=== PATIENT | female | born 1940 | race Caucasian/White ===

== ENCOUNTER → 2019-11-23 14:34 | Outpatient (BNVA) | payer MEDICARE, OTHER, SELFPAY | PROVIDERS: Referring Provider Dermatology; Visit Provider Dermatology | DX: L57.0 Actinic keratosis (principal); L21.9 Seborrheic dermatitis, unspecified; L82.1 Other seborrheic keratosis; L90.0 Lichen sclerosus et atrophicus; Z12.83 Encounter for screening for malignant neoplasm of skin | CPT/HCPCS: 17000; 17003; 99203; 99204 ==

== ENCOUNTER → 2020-01-23 11:25 | Outpatient (BNVA) | payer MEDICARE, OTHER, SELFPAY | PROVIDERS: Referring Provider Nurse Practitioner Family; Visit Provider Nurse Practitioner Family | DX: R19.7 Diarrhea, unspecified (principal); R19.8 Other specified symptoms and signs involving the digestive system and abdomen | CPT/HCPCS: 87205; 87425; 87493; 87506 ==

== ENCOUNTER → 2020-01-28 12:41 | Outpatient (BNVA) | payer MEDICARE, OTHER, SELFPAY | PROVIDERS: Visit Provider Emergency Medicine | DX: R19.7 Diarrhea, unspecified (principal); R10.9 Unspecified abdominal pain | CPT/HCPCS: 80053; 85025 ==

== ENCOUNTER 2020-02-03 11:31 | Outpatient (CLI) | payer MEDICARE, OTHER, SELFPAY ==
--- NOTE | 2020-02-03 11:45 | USCV_ITS ---
Valerie High Age: 79 Gender: F : 1940 Exam Date: 02/03/2020 12:26 Ordering Phys: Jm Geiger MD ([email or web address]) Technologist: Virginia Zaidi [place] [facility] [place]ication: HISTORY: varicose veins with swelling left ankle PROCEDURES: Bilateral duplex Venous Insufficiency study of the Deep and Superficial systems was carried out according to normal protocol with the patient in supine positon for deep system and dependent position for the superficial system. FINDINGS: negative for DVT and superficial thrombus. Reflux seen in left SFJ. No other areas of insufficiency noted Vessel diameters and reflux times noted above. CONCLUSIONS No evidence of DVT in the above-mentioned identifiable veins. Significant venous reflux of greater than 500 ms(5530) at the left saphenofemoral junction. No other significant refluxes were noted either in the superficial or deep vein segments bilaterally. The superficial veins were found to be relatively of small caliber bilaterally The venous dimensions and the depth from the surface are as mentioned above Dr Kristen Beatty MD [facility] (Electronically Signed) Final Date: 03 February 2020 19:57 S
== END 2020-02-03 11:32 | disposition home or self-care (01) ==
LOC: US 11:34
PROVIDERS: PCP Family Medicine; Visit Provider Internal Medicine Cardiovascular Disease
DX: I83.893 Varicose veins of bilateral lower extremities with other complications (principal); M79.89 Other specified soft tissue disorders
CPT/HCPCS: 93970

== ENCOUNTER → 2020-05-07 18:00 | Outpatient (BNVA) | payer MEDICARE, OTHER, SELFPAY | PROVIDERS: PCP Family Medicine; Visit Provider Family Medicine | DX: I10 Essential (primary) hypertension (principal); E11.9 Type 2 diabetes mellitus without complications; R19.7 Diarrhea, unspecified; I48.21 Permanent atrial fibrillation; M25.551 Pain in right hip; M25.552 Pain in left hip; Z86.73 Personal history of transient ischemic attack (TIA), and cerebral infarction without residual deficits | CPT/HCPCS: 80053; 80061; 83036 ==

== ENCOUNTER → 2020-10-30 11:12 | Outpatient (BNVA) | payer MEDICARE, OTHER, SELFPAY | PROVIDERS: PCP Family Medicine; Visit Provider Family Medicine | DX: K21.9 Gastro-esophageal reflux disease without esophagitis (principal); E78.00 Pure hypercholesterolemia, unspecified; I10 Essential (primary) hypertension; E11.9 Type 2 diabetes mellitus without complications; Z63.79 Other stressful life events affecting family and household; I48.21 Permanent atrial fibrillation; N18.2 Chronic kidney disease, stage 2 (mild) | CPT/HCPCS: 80053; 80061; 83036 ==

== ENCOUNTER → 2020-11-13 15:05 | Outpatient (BNVA) | payer MEDICARE, OTHER, SELFPAY | PROVIDERS: PCP Family Medicine; Visit Provider Nurse Practitioner Family | DX: J06.9 Acute upper respiratory infection, unspecified (principal); Z20.822 Contact with and (suspected) exposure to COVID-19 | CPT/HCPCS: 87635 ==

== ENCOUNTER 2020-11-27 11:10 | Emergency (ER) | payer MEDICARE, OTHER, SELFPAY ==
--- NOTE | 2020-11-27 11:22 | XRR_ITS ---
PROCEDURE INFORMATION: Exam: XR Chest Exam date and time: 11/27/2020 11:22 AM Age: 80 years old Clinical indication: Shortness of breath. TECHNIQUE: Imaging protocol: XR of the chest. Views: 1 view. COMPARISON: CR Ribs RIGHT w PA Chest [id number] 03/17/2018 3:06 PM FINDINGS: Lungs: No pneumonia or pulmonary edema. Biapical pleuroparenchymal scarring. Pleural spaces: No pleural effusion or pneumothorax. Heart/Mediastinum: The cardiac silhouette is not enlarged. The mediastinal contours are normal. Bones/joints: There are multilevel bridging osteophytes in the spine. XR/XR chest 1V portable [id number] IMPRESSION: No acute finding.
[2020-11-27 11:57] VITALS: BP 190/83; PULSE 73; RESP 16; TEMP 37.2; O2SAT 99; BMI 27.7
[2020-11-27 18:46] VITALS: BP 200/70; PULSE 84; RESP 16; O2SAT 98
--- NOTE | 2020-11-27 19:24 | ECG_ITS ---
[facility] ED Test Date: 2020-11-27 Pat Name: Valerie High Department: Room: Gender: Female Tribal Delegate: : 1940 Requested By: Montse Garcia Order Number: [id number] Ross MD: Natasha Johnson M.D. Measurements Intervals [place] Rate: 82 P: 26 CT: 142 QRS: 18 QRSD: 84 T: 11 QT: 362 QTc: 425 Interpretive Statements SINUS RHYTHM WITH FREQUENT VENTRICULAR PREMATURE COMPLEXES IN A BIGEMINAL PATTERN ABNORMAL RHYTHM ECG No previous ECG available for comparison Electronically Signed On 11-29-2020 7:41:39 CDT by Natasha Johnson M.D. [email or web address]/[id number]
--- NOTE | 2020-11-27 19:26 | ED_ITS ---
HPI - General Adult General: Chief complaint: COVID symptoms Stated complaint: N/D, altered taste Time Seen by Provider: 11/27/20 18:44 History of Present Illness: HPI narrative: Patient is a 80-year-old female with history of TIA, CKD, CAD, atrial fibrillation presented to the emergency room with complaints of generalized weakness malaise x2 weeks, decreased taste, and multiple episodes of loose stool/diarrhea. Patient tells me that over the last few weeks, she has been spiking intermittent fever. This morning, patient noticed she had a fever 100 agrees at home. Patient denies taking any medicine. Denies any melena or hematochezia, bur reports intermittent lower abdominal pain. Patient denies any chest pain shortness of breath, palpitation, and focal weakness. Has any vomiting but reports decreased p.o. intake due to sensation of nausea. No cough patient has had a Covid swab x1 -2 weeks ago. Onset:2 weeks ago Duration:2 weeks Location:home Severity:mild/moderate Review of Systems Narrative: Constitutional: +fever, no chills. +genealized weakness/malaise HEENT: No vision changes, +decrease taste CV: No chest pain, no palpitations PULM: no cough, no dyspnea. GI: +lower abdominal pain,, +N/-V/+D. : No dysuria MSKEL: No muscle pain SKIN: No new rashes, no lesions. NEURO: No headache, no focal weakness. HEME: No visible bruises PSYCH: Normal mood PFSH ED PFSH: Medical History A-fib CKD (chronic kidney disease) Diabetes mellitus GERD (gastroesophageal reflux disease) History of basal cell carcinoma (BCC) History of seizure History of stroke HTN (hypertension) Hx-TIA (transient ischemic attack) Hypercholesterolemia Lower extremity edema Premature ventricular contraction Surgical History S/P appendectomy S/P bladder repair S/P cataract surgery S/P cholecystectomy S/P hysterectomy Family History Other CAD (coronary artery disease) Social History Smoking and tobacco status: never smoked Alcohol intake: never Female Reproductive History: Spontaneous abortions: No Physical Exam Narrative: EXAM NARRATIVE: Head: Atraumatic Eyes: PERRL, conjunctiva without injection ENT: Mucous membrane moist NECK: Supple, ROM intact LUNGS: LCTAB, no crackles/rhonchi CV: RRR ABDOMEN: Soft, nontender in all quadrants, no rebound tenderness, no visible bulge, no focal tenderness palpitation in the suprapubic, CVA area EXTREMITY: Normal ROM SKIN: No rash or erythema NEURO: Awake and alert, no focal motor deficits PSYCH: Normal mood and affect Course Vital Signs: Vital signs: Vital Signs Temperature 98.9 F 11/27/20 11:57 Pulse Rate 89 11/27/20 22:32 Respiratory Rate 18 11/27/20 22:32 Blood Pressure 166/93 11/27/20 22:32 Pulse Oximetry 98 11/27/20 22:32 MDM - General Adult MDM Narrative: Medical decision making narrative: Patient is a 80-year-old female with a hx of TIA, CKD, CAD, atrial fibrillation scented to the emergency room with complaints of generalized weakness malaise x2 weeks, decreased taste, and multiple episodes of loose stool/diarrhea. Workup including EKG, troponin, basic blood work, urine. EKG NSR, bigeminy PVC, NV/QRS/QT within normal limit, no ST-T wave changes, prior EKG for comparison. Patient is Covid negative. Chest x-ray not show any signs of COVIDor other pneumonia. Laboratory evaluation are largely normal. Patient is noted to have a creatinine 1.4 which is close to baseline. Patient has no problem with urination. UA is negative for any UTI. EKG showed bigeminy have discussed findings with patient who reassures me she will follow up with her primary care provider for the EKG findings. Do not believe her EKG is the cause of her symptoms. Otherwise electrolytes slightly decreased including sodium. CMP within normal limit. I have offered patient admission for cardiac work-up however at this time, patient declines citing desire to go home. Discussed the risk of leaving the hospital today including , and hemodynamic labs and patient agrees with plan for outpatient follow-up with PCP. Verbalizes understanding of the alternatives includes close outpatient follow-up. Patient request for network account manager and new primary care provider. I have contacted her counseling case manager who will follow up with patient with these providers. Patient is aware of her EKG findings and has a copy of her EKG report. Over the emergency room, patient continued to sat greater than 95%. Patient needs hemodynamically stable without any focal complaints. Patient tolerated p.o. in the emergency room. No focal complaints abdominal pain tenderness on serial exam. Decision: Discharge. Patient is given strict return precaution for any w orsening pain, nausea/vomiting, focal weakness, chest pain shortness breath, new or concerning planes. Lab Data: Labs: Lab Results 11/27/20 11/27/20 11/27/20 Range/Units 19:00 19:00 19:00 WBC 10.7 H (4.0-10.0) 10^3/ uL RBC 4.54 (4.1-5.3) 10^6/u L Hgb 13.7 (11.5-15.3) g/dL Hct 42.0 (37.0-47.0) % MCV 92.5 (81-99) fL MCH 30.2 (28.0-34.0) pg MCHC 32.6 (30.0-36.0) g/dL RDW 11.7 L (12.1-15.1) % Plt Count 415 H (130-400) 10^3/c mm MPV 9.9 (7.4-10.4) fL Neut % (Auto) 57.1 % Lymph % (Auto) 33.0 % [place] % (Auto) 7.1 % Eos % (Auto) 1.4 % Baso % (Auto) 0.6 % Neut # (Auto) 6.09 (1.8-7.7) 10^3/u L Lymph # (Auto) 3.5 (0.8-4.8) 10^3/u L [place] # (Auto) 0.8 (0.2-0.9) 10^3/u L Eos # (Auto) 0.2 (0.0-0.8) 10^3/u L Baso # (Auto) 0.1 (0.0-0.1) 10^3/u L Nucleated RBC % (a uto) 0 % Nucleated RBCs # 0.0 /100WBC Sodium 132 L (136-145) mmol/L Potassium 4.5 (3.5-5.1) mmol/L Chloride 96 L (98-107) mmol/L Carbon Dioxide 23 (22-29) mmol/L Anion Gap 17.5 (5-19) BUN 16 (8-23) mg/dL Creatinine 1.4 H (0.5-0.9) mg/dL GFR Calculation Not Reportable Glucose 102 (65-115) mg/dL Calculated Osmolal ity 275 L (285-295) mOsm/k g Lactate 1.4 (0.5-2.2) mmol/L Calcium 10.1 (8.5-10.5) mg/dL Total Bilirubin 0.2 (0.15-1.2) mg/dL AST 17 (0-32) U/L ALT 16 (0-33) U/L Alkaline Phosphata se 106 H (35-105) IU/L Troponin T Gen 5 n g/L (0-10) ng/L Total Protein 8.1 (6.6-8.7) g/dL Albumin 4.2 (3.5-5.2) g/dL Globulin 3.9 (1.3-4.6) g/dL Lipase 16 (13-60) U/L Urine Color (Yellow) Urine Appearance (CLEAR) Urine pH (5-7) Ur Specific Gravit y (1.005-1.030) Urine Protein (Negative) Urine Glucose (UA) (Normal) Urine Ketones (Negative) Urine Blood (Negative) Urine Nitrate (Negative) Urine Bilirubin (Negative) Urine Urobilinogen (Negative) mg/dL Ur Leukocyte Jolanta ase (Negative) Urine RBC (0-2) /hpf Urine WBC (0-5) /hpf Ur Squamous Epith Cells (0-5) /hpf Amorphous Sediment Urine Bacteria (NONE) /hpf Urine Opiates Scre en (Negative) ng/mL Ur Barbiturates Sc reen (Negative) ng/mL Ur Phencyclidine S crn (Negative) ng/mL Ur Amphetamines Sc reen (Negative) ng/mL U Benzodiazepines Scrn (Negative) ng/mL Urine Cocaine Scre en (Negative) ng/mL U Marijuana (THC) Screen (Negative) ng/mL SARS-CoV-2 Ag (Rap id) (Negative) 11/27/20 11/27/20 11/27/20 Range/Units 19:00 19:30 20:35 WBC (4.0-10.0) 10^3/ uL RBC (4.1-5.3) 10^6/u L Hgb (11.5-15.3) g/dL Hct (37.0-47.0) % MCV (81-99) fL MCH (28.0-34.0) pg MCHC (30.0-36.0) g/dL RDW (12.1-15.1) % Plt Count (130-400) 10^3/c mm MPV (7.4-10.4) fL Neut % (Auto) % Lymph % (Auto) % [place] % (Auto) % Eos % (Auto) % Baso % (Auto) % Neut # (Auto) (1.8-7.7) 10^3/u L Lymph # (Auto) (0.8-4.8) 10^3/u L [place] # (Auto) (0.2-0.9) 10^3/u L Eos # (Auto) (0.0-0.8) 10^3/u L Baso # (Auto) (0.0-0.1) 10^3/u L Nucleated RBC % (a uto) % Nucleated RBCs # /100WBC Sodium (136-145) mmol/L Potassium (3.5-5.1) mmol/L Chloride (98-107) mmol/L Carbon Dioxide (22-29) mmol/L Anion Gap (5-19) BUN (8-23) mg/dL Creatinine (0.5-0.9) mg/dL GFR Calculation Glucose (65-115) mg/dL Calculated Osmolal ity (285-295) mOsm/k g Lactate (0.5-2.2) mmol/L Calcium (8.5-10.5) mg/dL Total Bilirubin (0.15-1.2) mg/dL AST (0-32) U/L ALT (0-33) U/L Alkaline Phosphata se (35-105) IU/L Troponin T Gen 5 n g/L 8 (0-10) ng/L Total Protein (6.6-8.7) g/dL Albumin (3.5-5.2) g/dL Globulin (1.3-4.6) g/dL Lipase (13-60) U/L Urine Color Yellow (Yellow) Urine Appearance Clear (CLEAR) Urine pH 7 (5-7) Ur Specific Gravit y 1.005 (1.005-1.030) Urine Protein Neg (Negative) Urine Glucose (UA) Norm (Normal) Urine Ketones Negative (Negative) Urine Blood Neg (Negative) Urine Nitrate Negative (Negative) Urine Bilirubin Neg (Negative) Urine Urobilinogen Neg (Negative) mg/dL Ur Leukocyte Jolanta ase Negative (Negative) Urine RBC 0-4 H (0-2) /hpf Urine WBC 0-4 H (0-5) /hpf Ur Squamous Epith Cells 5-10 H (0-5) /hpf Amorphous Sediment Not Reportable Urine Bacteria Trace (NONE) /hpf Urine Opiates Scre en (Negative) ng/mL Ur Barbiturates Sc reen (Negative) ng/mL Ur Phencyclidine S crn (Negative) ng/mL Ur Amphetamines Sc reen (Negative) ng/mL U Benzodiazepines Scrn (Negative) ng/mL Urine Cocaine Scre en (Negative) ng/mL U Marijuana (THC) Screen (Negative) ng/mL SARS-CoV-2 Ag (Rap id) Negative (Negative) 11/27/20 Range/Units 20:35 WBC (4.0-10.0) 10^3/ uL RBC (4.1-5.3) 10^6/u L Hgb (11.5-15.3) g/dL Hct (37.0-47.0) % MCV (81-99) fL MCH (28.0-34.0) pg MCHC (30.0-36.0) g/dL RDW (12.1-15.1) % Plt Count (130-400) 10^3/c mm MPV (7.4-10.4) fL Neut % (Auto) % Lymph % (Auto) % [place] % (Auto) % Eos % (Auto) % Baso % (Auto) % Neut # (Auto) (1.8-7.7) 10^3/u L Lymph # (Auto) (0.8-4.8) 10^3/u L [place] # (Auto) (0.2-0.9) 10^3/u L Eos # (Auto) (0.0-0.8) 10^3/u L Baso # (Auto) (0.0-0.1) 10^3/u L Nucleated RBC % (a uto) % Nucleated RBCs # /100WBC Sodium (136-145) mmol/L Potassium (3.5-5.1) mmol/L Chloride (98-107) mmol/L Carbon Dioxide (22-29) mmol/L Anion Gap (5-19) BUN (8-23) mg/dL Creatinine (0.5-0.9) mg/dL GFR Calculation Glucose (65-115) mg/dL Calculated Osmolal ity (285-295) mOsm/k g Lactate (0.5-2.2) mmol/L Calcium (8.5-10.5) mg/dL Total Bilirubin (0.15-1.2) mg/dL AST (0-32) U/L ALT (0-33) U/L Alkaline Phosphata se (35-105) IU/L Troponin T Gen 5 n g/L (0-10) ng/L Total Protein (6.6-8.7) g/dL Albumin (3.5-5.2) g/dL Globulin (1.3-4.6) g/dL Lipase (13-60) U/L Urine Color (Yellow) Urine Appearance (CLEAR) Urine pH (5-7) Ur Specific Gravit y (1.005-1.030) Urine Protein (Negative) Urine Glucose (UA) (Normal) Urine Ketones (Negative) Urine Blood (Negative) Urine Nitrate (Negative) Urine Bilirubin (Negative) Urine Urobilinogen (Negative) mg/dL Ur Leukocyte Jolanta ase (Negative) Urine RBC (0-2) /hpf Urine WBC (0-5) /hpf Ur Squamous Epith Cells (0-5) /hpf Amorphous Sediment Urine Bacteria (NONE) /hpf Urine Opiates Scre en Negative (Negative) ng/mL Ur Barbiturates Sc reen Negative (Negative) ng/mL Ur Phencyclidine S crn Negative (Negative) ng/mL Ur Amphetamines Sc reen Negative (Negative) ng/mL U Benzodiazepines Scrn Negative (Negative) ng/mL Urine Cocaine Scre en Negative (Negative) ng/mL U Marijuana (THC) Screen Negative (Negative) ng/mL SARS-CoV-2 Ag (Rap id) (Negative) Imaging Data^: Other Imaging: Radiologist's impression: [employer] [address] [place], [place] [address]VVhg ReportSigned Patient: Valerie High MUnruth #: [id number]: [id number]#:[id number]/Sex: 80 / FADM Date: 11/27/20Loc: ERRoom/Bed:Attending Dr: Ordering Provider/Ordering MD: Judy Campbell NP Date of Service: 11/27/20 Procedure(s): XR chest 1V portable [id number] Accession Number(s): [id number] Report Number: [id number] PROCEDURE INFORMATION: Exam: XR Chest Exam date and time: 11/27/2020 11:22 AM Age: 80 years old Clinical indication: Shortness of breath. TECHNIQUE: Imaging protocol: XR of the chest. Views: 1 view. COMPARISON: CR Ribs RIGHT w PA Chest [id number] 03/17/2018 3:06 PM FINDINGS: Lungs: No pneumonia or pulmonary edema. Biapical pleuroparenchymal scarring. Pleural spaces: No pleural effusion or pneumothorax. Heart/Mediastinum: The cardiac silhouette is not enlarged. The mediastinal contours are normal. Bones/joints: There are multilevel bridging osteophytes in the spine. XR/XR chest 1V portable [id number] IMPRESSION: No acute finding. Dictated By:Jaleel Dennis By:Jaleel Dennis Date/Time:11/27/20 1208DD/ 1206 Discharge Plan Discharge Patient Disposition: Home Clinical Impression: CKD (chronic kidney disease), Malaise, Generalized weakness Condition: Stable Prescriptions: No Action aspirin [Adult Aspirin Regimen] 81 mg tablet,delayed release (DR/EC) 81 mg PO DAILY RF: 0 magnesium 250 mg tablet 250 mg PO BID RF: 0 Complete Multivitamin Tablet 1 tab PO DAILY RF: 0 calcium carbonate [Calcium 600] 600 mg calcium (1,500 mg) tablet 600 mg PO DAILY RF: 0 Restasis 0.05 % dropperette 1 drop ophthalmic (eye) Q12H RF: 0 omeprazole 40 mg capsule,delayed release(DR/EC) 40 mg PO DAILY 90 Days Qty: 90 RF: 3 rosuvastatin 10 mg tablet 10 mg PO DAILY 90 Days Qty: 90 RF: 3 vitamin E (dl, acetate) 400 unit capsule 400 unit PO DAILY RF: 0 valsartan 160 mg tablet 160 mg PO BID Qty: 180 RF: 3 spironolactone 100 mg tablet 100 mg PO BID Qty: 60 RF: 3 metoprolol tartrate 25 mg tablet 25 mg PO BID Qty: 60 RF: 3 potassium 99 mg Tablet 99 mg PO DAILY RF: 0 Vitamin D3 125 mcg (5,000 unit) Tablet 125 mcg PO DAILY RF: 0 Probiotic Acidophilus Biobeads 12.9 mg (2 billion cell) Tablet,Delayed Release (Dr/Ec) 1 tab PO DAILY RF: 0 biotin 5,000 mcg Tablet,Disintegrating 5,000 mcg PO DAILY RF: 0 Discharge Orders: Discharge ED (Routine); Ordered 11/27/20 Ordered By: Montse Garcia Referrals: Carol Romeo MD [Primary Care Provider] - Discharge Diet: Regular Discharge Activity: Resume usual activity Patient Instructions: Diarrhea - Adult Activity Restrictions/Additional Instructions: Follow-up with your primary care provider and network account manager that we will contact you through a counseling case manager in the next few days. Please show your network account manager copy of her EKG. Coding Level of Care Code ED Apprentice Architect for Chg Rj
[2020-11-27 19:31] VITALS: BP 103/89; RESP 24; O2SAT 95
[2020-11-27 20:01] VITALS: BP 137/92; RESP 22; O2SAT 90
[2020-11-27 20:09] VITALS: BP 184/83; PULSE 85; RESP 16; O2SAT 98
[2020-11-27 20:12] LABS: Basophils # 0.1 10^3/uL (0.0-0.1); Basophils % 0.6 %; Eosinophils # 0.2 10^3/uL (0.0-0.8); Eosinophils % 1.4 %; Hemoglobin 13.7 g/dL (11.5-15.3); Lymphocytes # 3.5 10^3/uL (0.8-4.8); Mean Corpuscular HGB Conc 32.6 g/dL (30.0-36.0); Mean Corpuscular Hemoglobin 30.2 pg (28.0-34.0); Mean Corpuscular Volume 92.5 fL (81-99); Mean Platelet Volume 9.9 fL (7.4-10.4); Monocytes # 0.8 10^3/uL (0.2-0.9); Monocytes % 7.1 %; Neutrophils # 6.09 10^3/uL (1.8-7.7); Neutrophils % 57.1 %; Nucleated Red Blood Cells % 0 %; Platelet Count 415 10^3/cmm (130-400); Red Blood Count 4.54 10^6/uL (4.1-5.3); Red Cell Distribution Width 11.7 % (12.1-15.1); Troponin T (5th) Once 8 ng/L (0-10); White Blood Count 10.7 10^3/uL (4.0-10.0)
[2020-11-27 20:14] LABS: Lactate (Lactic Acid level) 1.4 mmol/L (0.5-2.2)
[2020-11-27 20:15] LABS: Alanine Aminotransferase 16 U/L (0-33); Albumin Level 4.2 g/dL (3.5-5.2); Alkaline Phosphatase 106 IU/L (35-105); Anion Gap 17.5 (5-19); Aspartate Amino Transferase 17 U/L (0-32); Blood Urea Nitrogen 16 mg/dL (8-23); Calcium 10.1 mg/dL (8.5-10.5); Carbon Dioxide 23 mmol/L (22-29); Chloride 96 mmol/L (98-107); Globulin 3.9 g/dL (1.3-4.6); Glucose 102 mg/dL (65-115); Lipase 16 U/L (13-60); Osmolality Calculated 275 mOsm/kg (285-295); Potassium 4.5 mmol/L (3.5-5.1); Sodium 132 mmol/L (136-145); Total Bilirubin 0.2 mg/dL (0.15-1.2); Total Protein 8.1 g/dL (6.6-8.7)
[2020-11-27 20:22] LABS: SARS Covid-2 Antigen Negative (Negative)
[2020-11-27] MEDS: alum-mag-hydroxide-sime 30 mL UDC PO (21:07)
[2020-11-27] MEDS: famotidine 20 mg Tablet PO (21:07)
[2020-11-27 21:09] LABS: Amphetamines Screen Urine Negative (Negative); Barbiturates Screen Urine Negative (Negative); Benzodiazepines Screen Urine Negative (Negative); Cocaine Screen Urine Negative (Negative); Opiate Screen Urine Negative (Negative); PCP Screen Urine Negative (Negative); THC Screen Urine Negative (Negative)
[2020-11-27] MEDS: sodium chloride 0.9% 500 ML IV (21:10)
[2020-11-27 21:18] LABS: Blood Urine Neg (Negative); Glucose Urine UA Norm (Normal); Ketones Urine Negative (Negative); Nitrate Urine Negative (Negative); Protein Urine Neg (Negative); Specific Gravity, Urine 1.005 (1.005-1.030); Urine Appearance Clear (CLEAR); Urine Color Yellow (Yellow); pH Urine 7 (5-7)
[2020-11-27 21:19] LABS: Add Urine Culture? No; Bacteria Urine TRACE /hpf; Bilirubin Urine Neg (Negative); Leukocyte Esterase Urine Negative (Negative); RBC Urine 0-4 /hpf (0-2); Urobilinogen Urine Neg (Negative); WBC Urine 0-4 /hpf (0-5)
[2020-11-27 22:32] VITALS: BP 166/93; PULSE 89; RESP 18; O2SAT 98
--- NOTE | 2020-11-28 11:31 | DCPLANNER ---
sales promotion manager had message to schedule a follow up appointment for patient with [facility] and get patient established with a primary care physician. sales promotion manager called [facility], spoke with Carol, gave clinic patients information. A follow up appointment was scheduled for Thursday, December 03, 2020 at 9:45 with ENERGY ECONOMIST, Landy Valadez. sales promotion manager called [facility], spoke with Miriam, gave clinic patients information. A followup appointment was scheduled for patient for November at 3:00 with Cathi Higgins. sales promotion manager called patient and gave patient information for both appointments.
[2020-11-28 15:01] LABS: Coronavirus Test Green County Not Detected
--- NOTE | 2020-11-28 17:35 | PC.NURSE ---
pt was contacted and given the results of her covid test
--- NOTE | 2020-12-07 15:01 | DCPLANNER ---
Patient had a follow up appointment scheduled for 12.03.20 with [facility] - patient did attend appointment.
== END 2020-11-27 22:30 | disposition home or self-care (01) ==
PROVIDERS: Emergency Provider Emergency Medicine; PCP Family Medicine
DX: R53.81 Other malaise (principal); R53.1 Weakness; I12.9 Hypertensive chronic kidney disease with stage 1 through stage 4 chronic kidney disease, or unspecified chronic kidney disease; N18.9 Chronic kidney disease, unspecified; I48.91 Unspecified atrial fibrillation; E78.00 Pure hypercholesterolemia, unspecified; I25.10 Atherosclerotic heart disease of native coronary artery without angina pectoris; Z79.82 Long term (current) use of aspirin; Z86.73 Personal history of transient ischemic attack (TIA), and cerebral infarction without residual deficits
CPT/HCPCS: 71045; 80053; 80306; 81001; 83605; 83690; 84484; 85025; 87426; 87635; 93005; 96360; 99284; J7040

== ENCOUNTER 2021-01-28 13:42 | Outpatient (CLI) | payer MEDICARE, OTHER, SELFPAY ==
--- NOTE | 2021-01-28 | XR_ITS ---
WS: [id number] SCREENING DEXA SCAN [facility] CLINICAL INFORMATION: ASYMPTOMATIC MENOPAUSAL STATE COMPARISON: None. FINDINGS: The L1-L4 bone mineral density measures 0.952 g/cm2. This corresponds to a T score score of -1.9 and Z score of 0.0. Left femoral neck bone mineral density measures 0.853 g/cm2. This corresponds to a T score of -1.2 an d Z score of 0.9. Right femoral neck bone mineral density measures 0.841 g/cm2. This corresponds to a T score -1.3of an d Z score of 0.8. Mean femoral neck bone mineral density measures 0.847 g/cm2. This corresponds to a T score of -1.3 an d Z score of 0.9. XR/XR DEXA axial skeleton* 72145 IMPRESSION: Osteopenia Patient's FRAX calculated 10 year probability for major osteoporotic fracture i s 14.1 % and osteoporotic hip fracture is 3.9%.
--- NOTE | 2021-01-28 13:49 | MM_ITS ---
WS: [id number] Bilateral screening digital mammogram, 01/28/2021 Clinical Data: SCREENING Comparison: 11/21/2016, 02/28/2015, 09/07/2013, 09/03/2012, 08/19/2011. Findings: The breast parenchymal pattern shows fibroglandular tissue. No spiculated masses or clustered calcifi cations are seen. There are no secondary signs of carcinoma. There are benign calcifications througho ut the breasts. There are lymph nodes in the left axilla. MM/[place] [id number] Impression: 1. Negative bilateral mammogram unchanged. 2. Recommend annual screening mammograms. BIRADS: 2-Benign FOLLOW UP: 1 Year Follow-up The CAD battery checker was used.
== END 2021-01-28 13:43 | disposition home or self-care (01) ==
PROVIDERS: PCP Nurse Practitioner Family; Visit Provider Nurse Practitioner Family
DX: Z12.31 Encounter for screening mammogram for malignant neoplasm of breast (principal); Z78.0 Asymptomatic menopausal state; M85.80 Other specified disorders of bone density and structure, unspecified site
CPT/HCPCS: 77067; 77080

== ENCOUNTER → 2021-05-27 09:18 | Outpatient (BNVA) | payer MEDICARE, OTHER, SELFPAY | PROVIDERS: PCP Nurse Practitioner Family; Visit Provider Podiatrist Foot & Ankle Surgery | DX: M19.072 Primary osteoarthritis, left ankle and foot (principal); M19.071 Primary osteoarthritis, right ankle and foot | CPT/HCPCS: 73610; 73630 ==

== ENCOUNTER 2021-06-24 10:51 | Observation (INO) | payer MEDICARE, OTHER, SELFPAY ==
[2021-06-24] VITALS (10 sets, daily range): BP systolic 112–170; BP diastolic 56–87; PULSE 74–97; RESP 15–20; TEMP 36.2–36.9; O2SAT 95–99; BMI 28.1; BMI 21.1
--- NOTE | 2021-06-24 | USCV_ITS ---
Transthoracic Echo Valerie High Age: 81 Gender: F : 1940 Exam Date: 06/24/2021 20:57 Ordering Phys: Jm Blas MD Technologist: Mani Monson Exam Location: [facility] [place] Indication: Angina BP: 170 / 72 HR: 82 Rhythm: Sinus Technical Quality: Adequate MEASUREMENTS (Male / Female) Normal Values 2D ECHO LV Diastolic Diameter PLAX 3.7 cm 4.2 - 5.9 / 3.9 - 5.3 cm LV Systolic Diameter PLAX 2.4 cm IVS Diastolic Thickness 1.3 cm 0.6 - 1.0 / 0.6 - 0.9 cm IVS Systolic Thickness 1.3 cm LVPW Diastolic Thickness 1.1 cm 0.6 - 1.0 / 0.6 - 0.9 cm LVPW Systolic Thickness 1.3 cm LVOT Diameter 2.0 cm LV Ejection Fraction 2D Teich 64.7 % LV Ejection Fraction MOD 2C 74.6 % LV Ejection Fraction 2C AL 74.4 % LA Diameter 3.5 cm LA Width 3.3 cm LA Height 5.4 cm RA Width 4.4 cm RA Height 3.9 cm Aorta at Sinotubular Diameter 1.7 cm M-MODE Aortic Annulus Diameter 2.2 cm LA Ao Ratio MM 1.8 MV E Point Septal Separation 1.9 cm DOPPLER AV Peak Velocity 155.8 cm/s LVOT Peak Velocity 84.0 cm/s AV Area Cont Eq vti 2.0 cm squared AV Area Cont Eq pk 1.7 cm squared MV Peak Velocity 55.0 cm/s MV Area PHT 4.6 cm squared Mitral E to A Ratio 0.7 MV E' Velocity 37.0 cm/s TR Peak Velocity 106.3 cm/s TR Peak Gradient 4.5 mmHg TR Mean Velocity 97.6 cm/s TR Mean Gradient 4.6 mmHg TR Velocity Time Integral 27.3 cm TV Peak E Velocity 63.0 cm/s Right Atrial Pressure 3.0 mmHg Pulmonary Artery Systolic Pressu 7.5 mmHg PV Peak Velocity 124.0 cm/s RV Acceleration Time 0.1 s RV Ejection Time 0.3 s RV AcT/ET 0.3 FINDINGS Left Ventricle Normal left ventricular size. LV systolic function is normal with EF of 55-60%. No regional wall motion abnormalities. Grade 1 diastolic dysfunction Right Ventricle The right ventricle is normal in size and function. Right Atrium The right atrium is normal in size. Left Atrium The left atrium is normal in size. Mitral Valve Mild mitral annular calcification without significant stenosis or prolapse. There is mild mitral regurgitation. Aortic Valve Aotic valve is thickened without significant stenosis. There is no aortic regurgitation. Tricuspid Valve Structurally normal tricuspid valve without significant stenosis. Mild tricuspid regurgitation. Pulmonary artery systolic pressure is normal Pulmonic Valve Not well visualized Pericardium Normal pericardium without effusion. Aorta Normal ascending aorta dimension. CONCLUSIONS Technically limited quality echocardiogram because of poor ultrasonic windows LV systolic function is normal with EF of 55-60% Grade 1 diastolic dysfunction Mild mitral regurgitation Mild tricuspid regurgitation No comparison studies are available Maikel Canales MD (Electronically Signed) Final Date: 24 June 2021 22:05 S
--- NOTE | 2021-06-24 11:17 | ECG_ITS ---
[facility] Test Date: 2021-06-24 Pat Name: Valerie High Department: Room: Gender: Female Meat Inspector: : 1940 Requested By: Montse Garcia Order Number: [id number] Ross MD: Natasha Johnson M.D. Measurements Intervals [place] Rate: 67 P: 66 AK: 138 QRS: 64 QRSD: 77 T: 63 QT: 400 QTc: 422 Interpretive Statements SINUS RHYTHM Compared to ECG 11/27/2020 19:31:26 Ventricular premature complex(es) no longer present Electronically Signed On 06-24-2021 16:10:18 SOFTWARE BUSINESS ANALYST by Natasha Johnson M.D. [id number]
--- NOTE | 2021-06-24 11:27 | CT_ITS ---
WS: [id number] CT ABDOMEN AND PELVIS WITH CONTRAST HISTORY: Nausea for one week. TECHNIQUE: Imaging performed of the abdomen and pelvis with IV contrast. Single phase imaging of the abdomen. Coronal and sagittal reformats are submitted. All CT scans at [facility] use at [facility] one of these dose optimization techniques: automated exposure control; mA and/or kV adjustment per patient size (includes targeted exams where dose is matched to clinical indication); or iterative re construction. IV CONTRAST: Visipaque 320; 95 mL IV. Oral contrast: No DLP: 1099.18 mGy.cm COMPARISON: None available. Lower thorax: Lung bases are clear. Mild cardiomegaly. Small hiatal hernia. Liver/biliary system: Normal size with no intrahepatic dilatation. Gallbladder: Prior cholecystectomy. Normal common bile duct. Pancreas: Mild atrophy of the pancreas. Spleen: Normal size spleen. No mass or infarct. Calcifications at the splenic hilum probably due to small chronic splenic artery aneurysm. Adrenal glands: Normal. Right kidney: Normal. Left kidney: Focal cortical scar in the mid kidney. No mass or obstruction. Aorta: Mild atherosclerosis with no aneurysm. Lymphadenopathy: None. Free fluid: None. GI tract: Prior appendectomy. Nondistended stomach. No small bowel obstruction. No colon obstruction. No submucosal wall thickening or edema. No significant diverticular disease. Abdominal wall: Unremarkable abdominal wall. No hernia. Pelvis: Well-distended urinary bladder. No free fluid or adenopathy in the pelvis. Bones: Increase in the lumbar lordosis. No destructive bone lesions. CT/CT abdomen pelvis w con* [id number] IMPRESSION: 1. No acute abdominal or pelvic abnormality identified. 2. Prior cholecystectomy and appendectomy. 3. Chronic focal scar mid LEFT kidney. 4. Atherosclerosis aorta.
--- NOTE | 2021-06-24 11:29 | ED_ITS ---
HPI - General Adult General: Chief complaint: Nausea/Vomiting/Diarrhea Stated complaint: N/V, cold sweats sent Heart Time Seen by Provider: 06/24/21 11:14 History of Present Illness: Patient is an 81-year-old female with a history of hypertension, hyperlipidemia, irregular heart rate presenting for abdominal pressure, diaphoresis and nausea. Per patient, she has been having symptoms for the last 1 week. Patient has intermittent episodes of nausea lasting for few minutes at a time accompanied with abdominal pressure and heaviness. Patient denies any chest pain, shortness breath, exertional chest pain/shortness of breath, pleuritic chest pain, nausea/vomiting fever/chills. Patient has had nasal congestion and mild epistaxis recently. Patient does not have a formal diagnosis of atrial fibrillation. Each time, patient has these nausea episode, she also feels sweaty and diaphoretic. Patient recently underwent Holter for [address] Johnson who referred her to the Onset:1 week ago Duration:1 week Location:home Severity:moderate Associated symptoms: Reports nausea; Deny chest pain, dyspnea, rash, palpitations or vomiting Review of Systems Const: Reports: other (+diaphoresis); Denies: fever(s) or chills Eyes: Denies: change in vision ENMT: Denies: mouth pain Card: Denies: chest pain or palpitations Resp: Denies: dyspnea or non-productive cough GI: Reports: nausea; Denies: abdominal pain, vomiting or diarrhea : Denies: dysuria Musc: Denies: extremity pain Skin/Breast: Denies: rash or new lesions Neuro: Denies: weakness in extremities Psych: Reports: other (Normal mood) Serg/Lymph: Denies: easy bruising PFSH ED PFSH: Medical History A-fib CKD (chronic kidney disease) Diabetes mellitus GERD (gastroesophageal reflux disease) History of basal cell carcinoma (BCC) History of seizure History of stroke HTN (hypertension) Hx-TIA (transient ischemic attack) Hypercholesterolemia Lower extremity edema Premature ventricular contraction Surgical History S/P appendectomy S/P bladder repair S/P cataract surgery S/P cholecystectomy S/P hysterectomy Family History Other CAD (coronary artery disease) Social History Smoking and tobacco status: never smoked Alcohol intake: never Female Reproductive History: Spontaneous abortions: No Physical Exam Const: COMMON NORMALS: alert HENMT: COMMON NORMALS: atraumatic HEAD & SCALP: atraumatic MOUTH: moist mucous membranes not abnormal Eye: COMMON NORMALS: EOMs intact bilaterally and conjunctivae normal CONJUNCTIVA: Yes conjunctivae normal Neck/C-Spine: COMMON NORMALS: full ROM and supple Resp: COMMON NORMALS: normal respiratory effort and clear to auscultation bilaterally AUSCULTATION: clear to auscultation bilaterally Cardio: COMMON NORMALS: regular rate RATE: regular rate OTHER: 2+ radial pulses b/l GI: COMMON NORMALS: Soft to palpation and non-tender PALPATION: Yes Soft to palpation Extremity: COMMON NORMALS: full ROM Neuro: SENSORIUM/ORIENTATION: Yes alert MOTOR EXAM: No Abnormal motor strength present and Other motor observations present (no focal motor deficits) Psych: COMMON NORMALS: speech normal SPEECH: Yes normal speech MOOD & AFFECT: Yes euthymic mood Course Vital Signs: Vital signs: Vital Signs Temperature 96.9 F L 06/25/21 09:09 Pulse Rate 97 06/25/21 10:27 Respiratory Rate 18 06/25/21 09:09 Blood Pressure 157/77 06/25/21 10:27 Pulse Oximetry 97 06/25/21 09:09 [facility] - General Adult Medical Decision Making 81-year-old female with history hypertension hyperlipidemia presented to emergency room with intermittent abdominal pressure with nausea and diaphoresis. Exam, patient has mild epigastric tenderness palpation. CT abdomen negative for any acute finding. Creatinine 1.6 similar to baseline. Troponin x2 within normal limit. EKG is nonischemic. I performed a shared decision with making with patient for admision vs close outpatient followup with Cardiology for ACS workup since patient has the abdominal pressure, nausea and diaphoresis, this co uld be anginal equivalent. Patient elects to stay in the hospital for cardiac work-up. Disposition: Admission Lab Data : 06/25/21 03:58 06/25/21 03:58 Radiology Impressions Abdomen/Pelvis CT 06/24/21 11:27 IMPRESSION: 1. No acute abdominal or pelvic abnormality identified. 2. Prior cholecystectomy and appendectomy. 3. Chronic focal scar mid LEFT kidney. 4. Atherosclerosis aorta. Chest X-Ray 06/24/21 15:12 IMPRESSION: Unremarkable chest. No acute findings. Laboratory Results WBC 9.6 10^3/uL (4.0-10.0) 06/24/21 11:24 RBC 4.38 10^6/uL (4.1-5.3) 06/24/21 11:24 Hgb 13.0 g/dL (11.5-15.3) 06/24/21 11:24 Hct 41.4 % (37.0-47.0) 06/24/21 11:24 MCV 94.5 fl (81-99) 06/24/21 11:24 MCH 29.7 pg (28.0-34.0) 06/24/21 11:24 MCHC 31.4 g/dL (30.0-36.0) 06/24/21 11:24 RDW 12.1 % (12.1-15.1) 06/24/21 11:24 Plt Count 278 10^3/cmm (130-400) 06/24/21 11:24 MPV 9.8 fL (7.4-10.4) 06/24/21 11:24 Neut % (Auto) 60.0 % 06/24/21 11:24 Lymph % (Auto) 28.5 % 06/24/21 11:24 [place] % (Auto) 7.6 % 06/24/21 11:24 Eos % (Auto) 2.7 % 06/24/21 11:24 Baso % (Auto) 0.8 % 06/24/21 11:24 Neut # (Auto) 5.72 10^3/uL (1.8-7.7) 06/24/21 11:24 Lymph # (Auto) 2.7 10^3/uL (0.8-4.8) 06/24/21 11:24 [place] # (Auto) 0.7 10^3/uL (0.2-0.9) 06/24/21 11:24 Eos # (Auto) 0.3 10^3/uL (0.0-0.8) 06/24/21 11:24 Baso # (Auto) 0.1 10^3/uL (0.0-0.1) 06/24/21 11:24 Nucleated RBC % (auto) 0 % 06/24/21 11:24 Nucleated RBCs # 0.0 /100WBC 06/24/21 11:24 Sodium 136 mmol/L (136-145) 06/24/21 11:24 Potassium 5.1 mmol/L (3.5-5.1) 06/24/21 11:24 Chloride 99 mmol/L (98-107) 06/24/21 11:24 Carbon Dioxide 23 mmol/L (22-29) 06/24/21 11:24 Anion Gap 19.1 (5-19) H 06/24/21 11:24 BUN 22 mg/dL (8-23) 06/24/21 11:24 Creatinine 1.5 mg/dL (0.5-0.9) H 06/24/21 11:24 GFR Calculation Not Reportable 06/24/21 11:24 Glucose 122 mg/dL (65-115) H 06/24/21 11:24 Calculated Osmolality 287 mOsm/kg (285-295) 06/24/21 11:24 Calcium 9.3 mg/dL (8.5-10.5) 06/24/21 11:24 Total Bilirubin 0.2 mg/dL (0.15-1.2) 06/24/21 11:24 AST 18 U/L (0-32) 06/24/21 11:24 ALT 18 U/L (0-33) 06/24/21 11:24 Alkaline Phosphatase 94 IU/L (35-105) 06/24/21 11:24 Troponin T Baseline 6 ng/L (0-10) 06/24/21 11:24 Troponin T 120 Minute 9.61 ng/L (0-10) 06/24/21 13:21 Delta Troponin T 3.61 ABS# (0-10) 06/24/21 13:21 Total Protein 7.3 g/dL (6.6-8.7) 06/24/21 11:24 Albumin 4.3 g/dL (3.5-5.2) 06/24/21 11:24 Globulin 3.0 g/dL (1.3-4.6) 06/24/21 11:24 Lipase 29 U/L (13-60) 06/24/21 11:24 Urine Color Straw (Yellow) 06/24/21 12:35 Urine Appearance Clear (CLEAR) 06/24/21 12:35 Urine pH 8 (5-7) H 06/24/21 12:35 Ur Specific Damon 1.005 (1.005-1.030) 06/24/21 12:35 Urine Protein Neg (Negative) 06/24/21 12:35 Urine Glucose (UA) Norm (Normal) 06/24/21 12:35 Urine Ketones Negative (Negative) 06/24/21 12:35 Urine Blood Neg (Negative) 06/24/21 12:35 Urine Nitrate Negative (Negative) 06/24/21 12:35 Urine Bilirubin Neg (Negative) 06/24/21 12:35 Prot Sulfosalicylic Acd Negative (Negative) 06/24/21 12:35 Urine Urobilinogen Norm mg/dL (Negative) 06/24/21 12:35 Ur Leukocyte Esterase Negative (Negative) 06/24/21 12:35 Coronavirus 229E (PCR) Not detected (NOT DETECT) 06/24/21 11:39 SARS-CoV-2 (PCR) Not detected (NOT DETECT) 06/24/21 11:39 Imaging Data Other Imaging: Radiologist's impression: [place] [address] CT Scan Report Signed Patient: Valerie High Unit #: [id number] : 1940 Age/Sex: 81 / F ADM Date: 06/24/21 Loc: ER Room/Bed: Attending Dr: Ordering Provider/Ordering MD: Montse Garcia MD Date of Service: 06/24/21 Procedure(s): CT abdomen pelvis w con* [id number] Accession Number(s): [id number] Report Number: [id number] WS: [id number] CT ABDOMEN AND PELVIS WITH CONTRAST HISTORY: Nausea for one week. TECHNIQUE: Imaging performed of the abdomen and pelvis with IV contrast.? Single phase imaging of the abdomen. Coronal and sagittal reformats are submitted.? All CT scans at [facility] use at least one of these dose optimization techn iques: automated exposure control; mA and/or kV adjustment per patient size (includes targeted exams where dose is matched to clinical indication); or iterative reconstruction. IV CONTRAST: Visipaque 320; 95 mL IV. Oral contrast: No DLP: 1099.18 mGy.cm COMPARISON: None available. Lower thorax: Lung bases are clear. Mild cardiomegaly. Small hiatal hernia. Liver/biliary system: Normal size with no intrahepatic dilatation. Gallbladder: Prior cholecystectomy. Normal common bile duct. Pancreas: Mild atrophy of the pancreas. Spleen: Normal size spleen. No mass or infarct.? Calcifications at the splenic hilum probably due to small chronic splenic artery aneurysm. Adrenal glands: Normal. Right kidney: Normal. Left kidney: Focal cortical scar in the mid kidney. No mass or obstruction. Aorta: Mild atherosclerosis with no aneurysm. Lymphadenopathy: None. Free fluid: None. GI tract: Prior appendectomy. Nondistended stomach. No small bowel obstruction. No colon obstruction. No submucosal wall thickening or edema. No significant diverticular disease. Abdominal wall: Unremarkable abdominal wall. No hernia. Pelvis: Well-distended urinary bladder. No free fluid or adenopathy in the pelvis. Bones: Increase in the lumbar lordosis. No destructive bone lesions. CT/CT abdomen pelvis w con* [id number] IMPRESSION: ? 1.? No acute abdominal or pelvic abnormality identified. 2.? Prior cholecystectomy and appendectomy. 3.? Chronic focal scar mid LEFT kidney. 4.? Atherosclerosis aorta. ? Dictated By: Leyda Yip DO Signed By: Leyda Yip DO Signed Date/Time: 06/24/21 1328 DD/ 1320 Discharge Plan Discharge Patient Disposition: Admitted As Inpatient Admit Provider: Puneet Schwartz Clinical Impression: Abdominal pressure, Nausea, Diaphoresis Condition: Stable Coding Level of Care Code ED Enrollment Management Coordinator for Chg Fwd Exam Comprehensive
[2021-06-24 11:31] LABS: Basophils # 0.1 10^3/uL (0.0-0.1); Basophils % 0.8 %; Eosinophils # 0.3 10^3/uL (0.0-0.8); Eosinophils % 2.7 %; Hematocrit 41.4 % (37.0-47.0); Lymphocytes # 2.7 10^3/uL (0.8-4.8); Lymphocytes % 28.5 %; Mean Corpuscular HGB Conc 31.4 g/dL (30.0-36.0); Mean Corpuscular Hemoglobin 29.7 pg (28.0-34.0); Mean Corpuscular Volume 94.5 fl (81-99); Mean Platelet Volume 9.8 fL (7.4-10.4); Monocytes # 0.7 10^3/uL (0.2-0.9); Monocytes % 7.6 %; Neutrophils # 5.72 10^3/uL (1.8-7.7); Nucleated Red Blood Cells % 0 %; Platelet Count 278 10^3/cmm (130-400); Red Blood Count 4.38 10^6/uL (4.1-5.3); Red Cell Distribution Width 12.1 % (12.1-15.1); White Blood Count 9.6 10^3/uL (4.0-10.0)
[2021-06-24] MEDS: famotidine 20 mg/2 mL INJ IVP (11:45)
[2021-06-24] MEDS: ondansetron 2 mg/ML SDV 2 mL 4 MG IVP (11:45)
[2021-06-24] MEDS: sodium chloride 0.9% 500 ML IV ×2 (11:45→13:55)
[2021-06-24 11:56] LABS: Alanine Aminotransferase 18 U/L (0-33); Albumin Level 4.3 g/dL (3.5-5.2); Alkaline Phosphatase 94 IU/L (35-105); Anion Gap 19.1 (5-19); Aspartate Amino Transferase 18 U/L (0-32); Blood Urea Nitrogen 22 mg/dL (8-23); Calcium 9.3 mg/dL (8.5-10.5); Carbon Dioxide 23 mmol/L (22-29); Chloride 99 mmol/L (98-107); Glucose 122 mg/dL (65-115); Lipase 29 U/L (13-60); Osmolality Calculated 287 mOsm/kg (285-295); Potassium 5.1 mmol/L (3.5-5.1); Sodium 136 mmol/L (136-145); Total Bilirubin 0.2 mg/dL (0.15-1.2); Total Protein 7.3 g/dL (6.6-8.7)
[2021-06-24 11:57] LABS: Troponin(5th) Baseline 6 ng/L (0-10)
[2021-06-24 13:06] LABS: Add Urine Microscopic? NO; Charge for UA Resulting for Rev
[2021-06-24] MEDS: iodixanol 320 mg/mL 100mL Btl IV (13:07)
--- NOTE | 2021-06-24 13:17 | ECG_ITS ---
[facility] Test Date: 2021-06-24 Pat Name: Valerie High Department: Room: Gender: Female Integration Project Manager: : 1940 Requested By: Montse Garcia Order Number: [id number] Ross MD: Natasha Johnson M.D. Measurements Intervals [place] Rate: 79 P: 58 PA: 163 QRS: 70 QRSD: 81 T: 60 QT: 383 QTc: 440 Interpretive Statements SINUS RHYTHM WITH OCCASIONAL VENTRICULAR PREMATURE COMPLEXES Compared to ECG 06/24/2021 11:37:17 Ventricular premature complex(es) now present Electronically Signed On 06-24-2021 16:15:02 COMMERCIAL LINES ACCOUNT MANAGER by Natasha Johnson M.D. [id number]
[2021-06-24 13:26] LABS: Adenovirus Not Detected (NOT DETECT); Chlamydia Pneumoniae Not Detected (NOT DETECT); Coronavirus 229E,HKU1,NL63,OC4 Not Detected (NOT DETECT); Human Metapneumovirus Not Detected (NOT DETECT); Human Rhinovirus/Enterovirus Not Detected (NOT DETECT); Influenza A Not Detected (NOT DETECT); Influenza A H1 Not Detected (NOT DETECT); Influenza A H1-2009 Not Detected (NOT DETECT); Influenza A H3 Not Detected (NOT DETECT); Influenza B Not Detected (NOT DETECT); Mycoplasma Pneumoniae Not Detected (NOT DETECT); Parainfluenza Virus Type 1 Not Detected (NOT DETECT); Parainfluenza Virus Type 2 Not Detected (NOT DETECT); Parainfluenza Virus Type 3 Not Detected (NOT DETECT); Parainfluenza Virus Type 4 Not Detected (NOT DETECT); Respiratory Syncytial Virus A Not Detected (NOT DETECT); Respiratory Syncytial Virus B Not Detected (NOT DETECT); SARS-COV-2 Not Detected (NOT DETECT)
[2021-06-24 13:30] LABS: Specific Gravity, Urine 1.005 (1.005-1.030); Urine Appearance Clear (CLEAR); Urine Color Straw (Yellow); pH Urine 8 (5-7)
[2021-06-24 13:31] LABS: Bilirubin Urine Neg (Negative); Blood Urine Neg (Negative); Glucose Urine UA Norm (Normal); Ketones Urine Negative (Negative); Leukocyte Esterase Urine Negative (Negative); Nitrate Urine Negative (Negative); Protein Urine Neg (Negative); Sulfosalicylic Acid Urine Negative (Negative); Urobilinogen Urine Norm (Negative)
[2021-06-24 14:25] LABS: Troponin 5 2HR 9.61 ng/L (0-10)
[2021-06-24 14:40] LABS: Troponin 5 2HR Delta 3.61 ABS# (0-10)
--- NOTE | 2021-06-24 15:12 | XR_ITS ---
WS: [id number] PORTABLE CHEST HISTORY: chest pain COMPARISON: 11/27/2020 Biapical pleural thickening similar to the prior study. No pneumonia. Normal vasculature. No pleural effusion or pneumothorax. Cardiac size: Normal. Mediastinum/Aorta: Mild atherosclerosis aorta. No osseous abnormality seen. XR/XR chest 1V portable [id number] IMPRESSION: Unremarkable chest. No acute findings.
--- NOTE | 2021-06-24 16:04 | PM.HP ---
Providers/Chief Complaint Primary Care Provider: AARON Petty Chief Complaint: N/V, cold sweats sent Heart History of Present Illness Valerie High is a 81 year old female presented to the hospital with chief complaint recurrent nausea. Patient is stating that for last 5 days she has been experiencing nausea. His nausea is very atypical, she is feeling hungry when she tries to eat she was stopped eating and middle for her want to eat at all. She has not experienced any chest pain or shortness of breath. She is not leading an active lifestyle. She does walk her dog has not experienced any popping or PND chest pain or shortness of breath. No recent fever. Endorsing back pain. No recent change in bowel habits. Her nausea is associated with diaphoresis. She called her cardiology clinic and secondary to her symptoms advised admission to the hospital . Patient is stating that about 6 years ago stress test in [place] because of high heart rate which took about 2 days to bring her heart rate within normal range She is vaccinated for COVID-19 Troponin unremarkable, UA unremarkable COVID-19 negative We will plan for stress test tomorrow morning n.p.o. after midnight Review of Systems Const: Denies: fever(s) Eyes: Denies: change in vision Card: Reports: chest pain and dyspnea on exertion Resp: Reports: dyspnea GI: Denies: abdominal pain : Denies: flank pain Musc: Reports: back pain Skin/Breast: Denies: rash Neuro: Denies: headache(s) Psych: Reports: anxiety Endo: Denies: polyuria Serg/Lymph: Denies: easy bruising Medications/Allergies Home Medications Medication Instructions Recorded Confirmed Last Taken Type aspirin 81 mg tablet,delayed 81 mg PO DAILY 11/23/19 06/24/21 06/24/21 History release (Adult Aspirin Regimen) calcium carbonate 600 mg calcium 600 mg PO DAILY 11/23/19 06/24/21 06/24/21 History (1,500 mg) tablet (Calcium) magnesium 250 mg tablet 250 mg PO BID tab 11/23/19 06/24/21 06/24/21 History vitamin E (dl, acetate) 180 mg 400 unit PO DAILY 01/09/20 06/24/21 06/24/21 History (400 unit) capsule valsartan 160 mg tablet 160 mg PO BID #180 tab 04/06/24/21 06/24/21 Rx omeprazole 40 mg capsule,delayed 40 mg PO DAILY 90 Days #90 cap 10/30/20 06/24/21 06/24/21 Rx release rosuvastatin 10 mg tablet 10 mg PO DAILY 90 Days #90 tab 10/30/20 06/24/21 06/24/21 Rx L.acidoph-L.rhamn-B.bifidum-B.long 1 tab PO DAILY 11/27/20 06/24/21 06/24/21 History 12.9 mg (2 billion cell) tablet, DR (Probiotic Acidophilus Biobeads) biotin 5,000 mcg disintegrating 5,000 mcg PO DAILY 11/27/20 06/24/21 06/24/21 History tablet cholecalciferol (vitamin D3) 125 125 mcg PO DAILY 11/27/20 06/24/21 06/24/21 History mcg (5,000 unit) tablet (Vitamin D3) potassium 99 mg tablet 99 mg PO DAILY 11/27/20 06/24/21 06/24/21 History cyclosporine 0.05 % eye drops 1 drp OPHTHALMIC (EYE) Q12H 03/18/21 06/24/21 06/24/21 History (Restasis MultiDose) ketoconazole 2 % topical cream 1 applic TOPICAL BID PRN g 03/18/21 06/24/21 Unknown History vitamin B complex (B 1 tab PO DAILY 03/18/21 06/24/21 06/24/21 History Complex-Vitamin B12) zinc 50 mg tablet 50 mg PO DAILY 03/18/21 06/24/21 06/24/21 History clobetasol 0.05 % topical cream 1 applic TOPICAL DAILY #60 g 05/15/21 06/24/21 Unknown Rx doxazosin 1 mg tablet 1 mg PO DAILY 06/24/21 06/24/21 06/24/21 History metoprolol tartrate 50 mg tablet 50 mg PO BID 06/24/21 06/24/21 06/24/21 History multivitamin 1 tab PO DAILY 06/24/21 06/24/21 06/24/21 History spironolactone 100 mg tablet 100 mg PO BID 06/24/21 06/24/21 06/24/21 History Allergies Allergy/AdvReac Type Severity Reaction Status Date / Time chlorpheniramine Allergy Severe stroke Verified 06/24/21 12:41 [From DURAHIST] pseudoephedrine Allergy Severe stroke Verified 06/24/21 12:41 [From DURAHIST] scopolamine [From DURAHIST] Allergy Severe stroke Verified 06/24/21 12:41 dicyclomine Allergy Unknown unknown Verified 06/24/21 12:41 hydrochlorothiazide Allergy Unknown unknown Verified 06/24/21 12:41 carvedilol Allergy ADR-Nausea Verified 06/24/21 12:41 cephalexin [From Keflex] Allergy hives, Verified 06/24/21 12:41 crazy feeling methylprednisolone Allergy cheeks hot Verified 06/24/21 12:41 [From Medrol] sulfamethoxazole Allergy stroke Verified 06/24/21 12:41 [From Bactrim] trimethoprim [From Bactrim] Allergy stroke Verified 06/24/21 12:41 PFSH Acute PFSH: Medical History A-fib CKD (chronic kidney disease) Diabetes mellitus GERD (gastroesophageal reflux disease) History of basal cell carcinoma (BCC) History of seizure History of stroke HTN (hypertension) Hx-TIA (transient ischemic attack) Hypercholesterolemia Lower extremity edema Premature ventricular contraction Surgical History S/P appendectomy S/P bladder repair S/P cataract surgery S/P cholecystectomy S/P hysterectomy Family History Other CAD (coronary artery disease) Social History Smoking and tobacco status: never smoked Alcohol intake: never Female Reproductive History: Spontaneous abortions: No Vitals/I&O/Wt Last Vital Signs Temp 98.4 F 06/24/21 11:09 Pulse 77 06/24/21 13:55 Resp 20 H 06/24/21 13:55 BP 130/62 06/24/21 13:55 Pulse Ox 95 06/24/21 13:55 06/24/21 06/24/21 06/24/21 06:59 14:59 22:59 Intake Total 500 / 500 Balance 500 / 500 Weight last 48 hrs Weight 65.317 kg Physical Exam Narrative: female Variable S1-S2 Saturating well on room air Visceral obesity Nonfocal neuro exam Hypertensive Abdomen soft Very pleasant cooperative Looks euvolemic No active chest pain No shortness of breath Saturating well on room air [employer] mood and affect Data : 06/24/21 11:24 06/24/21 11:24 A&P Assessment and plan (1) Abdominal pressure: Status: Acute (2) Nausea: Status: Acute (3) Diaphoresis: Status: Acute (4) Rapid palpitations: Status: Acute (5) CKD (chronic kidney disease): Status: Acute Plan Angina equivalent symptoms Moderate risk factors for coronary disease We obtain stress test tomorrow morning N.p.o. after midnight Hold metoprolol Echo in the morning Check D-dimer, TSH Hold multivitamins Continue GERD omeprazole treatment DVT prophylaxis: Heparin Full code She can have cardiac consistent carb diet until midnight Sliding scale for type 2 diabetes Check A1c level Chronic kidney disease without acute exacerbation Baseline creatinine seems to be around 1.3-1.5 Attestations Medical Necessity Statement*: Discharge within 48 hours Time Spent in Patient Care: 35mins Coding Level of Care Code Acute Shotgun Shell Assembly Machine Operator for Chg Fwd Diagnoses Abdominal pressure R10.9 Nausea R11.0 Diaphoresis R61 Rapid palpitations R00.2 CKD (chronic kidney disease) N18.9
[2021-06-24] MEDS: enoxaparin 40 mg/0.4 mL Syringe SUBCUT (18:10)
[2021-06-24 18:17] LABS: Glucose Point of Care 122 mg/dL (70-110)
[2021-06-24 18:47] LABS: Troponin 5 6HR 13.75 ng/L (0-10)
[2021-06-24 18:49] LABS: Troponin 5 6HR Delta 7.75 ng/L (0-12)
--- NOTE | 2021-06-24 19:40 | PC.NURSE ---
Pt lying in bed resting and watching tv. Pts resp even and non-labored no distress noted. Pt had no c/o pain or discomfort at the present time. No needs voiced. Call light in reach. Will cont to monitor.
--- NOTE | 2021-06-24 19:48 | PC.NURSE ---
Admit Note Patient admitted to [facility] from ED via wheelchair. Covering service notified. Patient presents with c/o of intermittent indigestion. Orders reviewed & will continue to monitor. Patient and/or payroll representative oriented to environment, equipment, and informed of the following as found in the admission booklet: patient rights & responsibilities, visitor policy, hand and respiratory hygiene practice. Other education includes: Upcoming procedures, activity orders, and tests. Patient and/or payroll representative verbalized understanding of all teaching.
[2021-06-24] MEDS: losartan 50 mg Tablet PO (20:17)
--- NOTE | 2021-06-24 20:27 | ECG_ITS ---
[facility] Test Date: 2021-06-25 Pat Name: Valerie High Department: Room: 103 Gender: Female Pedigree Tracer: : 1940 Requested By: Montse Garcia Order Number: [id number] Ross MD: Maikel Canales M.D. Measurements Intervals [place] Rate: 79 P: 54 FL: 149 QRS: 58 QRSD: 76 T: 47 QT: 371 QTc: 427 Interpretive Statements SINUS RHYTHM Compared to ECG 06/24/2021 13:23:47 Ventricular premature complex(es) no longer present Electronically Signed On 06-25-2021 17:40:00 EMR TRAINER by Maikel Canales M.D. [id number]
[2021-06-25] VITALS (8 sets, daily range): BP systolic 138–170; BP diastolic 67–88; PULSE 75–100; RESP 17–19; TEMP 36.1–36.2; O2SAT 96–98
[2021-06-25 04:44] LABS: Basophils # 0.1 10^3/uL (0.0-0.1); Basophils % 0.9 %; Eosinophils # 0.3 10^3/uL (0.0-0.8); Eosinophils % 3.6 %; Hematocrit 38.1 % (37.0-47.0); Lymphocytes # 3.5 10^3/uL (0.8-4.8); Lymphocytes % 39.2 %; Mean Corpuscular HGB Conc 31.5 g/dL (30.0-36.0); Mean Corpuscular Hemoglobin 30.6 pg (28.0-34.0); Mean Corpuscular Volume 97.2 fl (81-99); Monocytes # 0.7 10^3/uL (0.2-0.9); Monocytes % 8.1 %; Neutrophils # 4.23 10^3/uL (1.8-7.7); Neutrophils % 47.7 %; Nucleated Red Blood Cells % 0 %; Platelet Count 229 10^3/cmm (130-400); Red Blood Count 3.92 10^6/uL (4.1-5.3); Red Cell Distribution Width 12.5 % (12.1-15.1); White Blood Count 8.9 10^3/uL (4.0-10.0)
[2021-06-25 05:07] LABS: Anion Gap 17.5 (5-19); Blood Urea Nitrogen 19 mg/dL (8-23); Calcium 10.2 mg/dL (8.5-10.5); Carbon Dioxide 22 mmol/L (22-29); Chloride 105 mmol/L (98-107); Glucose 95 mg/dL (65-115); Osmolality Calculated 292 mOsm/kg (285-295); Potassium 4.5 mmol/L (3.5-5.1); Sodium 140 mmol/L (136-145)
--- NOTE | 2021-06-25 06:00 | ECG_ITS ---
[facility] Test Date: 2021-06-25 Pat Name: Valerie High Department: Room: 103 Gender: Female Site Reliability Engineer: : 1940 Requested By: Jm Blas Order Number: [id number] Ross MD: Natasha Johnson M.D. Interpretive Statements NAME OF STUDY: LEXISCAN SESTAMIBI STRESS TEST INDICATION: Angina PROCEDURE: At the baseline, the blood pressure was 155/85 mmHg with a heart rate of 86 bpm. The electrocardiogram showed normal sinus rhythm, normal axis with normal ST and T's. The Lexiscan was infused over a period of 20 seconds. A total of 0.4 milligrams of Lexiscan was infused. The stress phase was continued for a total of 5 minutes. Heart rate at the end of the stress phase was 99 bpm with a blood pressure of 157/77 mmHg. The EKG at the peak infusion revealed sinus rhythm with isolated PVC. No significant ST-T wave changes. Sestamibi was injected 20 seconds after the Lexiscan infusion. Blood pressure at the end of the recovery phase was 157/77 mmHg with a heart rate of 103 beats per minute. CONCLUSION: 1. Normal EKG response to LexiScan infusion. 2. No LexiScan induced chest pain or cardiac arrhythmia. 3. Normal blood pressure and heart rate response. 4. Sestamibi/sestamibi perfusion scan pending; see separate report. Electronically Signed On 06-25-2021 11:08:37 LINE INSTALLER REPAIRER by Natasha Johnson M.D. [id number]
[2021-06-25 06:35] LABS: Glucose Point of Care 122 mg/dL (70-110)
[2021-06-25] MEDS: regadenoson 0.4 Mg/5 ml Syringe IVP (07:53)
[2021-06-25] MEDS: atorvastatin 40 mg Tablet PO (09:19)
[2021-06-25] MEDS: aspirin 81 mg EC Tablet PO (09:19)
[2021-06-25] MEDS: pantoprazole DR 40 mg Tablet PO (09:19)
[2021-06-25] MEDS: losartan 50 mg Tablet PO (09:19)
[2021-06-25] MEDS: spironolactone 25 mg Tablet 100 MG PO (09:20)
[2021-06-25] MEDS: doxazosin 1 mg Tablet PO (11:04)
[2021-06-25 11:30] LABS: Glucose Point of Care 131 mg/dL (70-110)
--- NOTE | 2021-06-25 12:34 | PM.DCS ---
Discharge Providers Date of Admission: 06/24/21 15:09 Date of Discharge: June 25, 2021 Attending Provider at Admission: Puneet Schwartz MD Attending Provider at Discharge: Jm Blas MD Primary Care Provider: AARON Petty Diagnoses at Discharge Discharge Diagnosis (1) Abdominal pressure: Status: Acute (2) Nausea: Status: Acute (3) Diaphoresis: Status: Acute (4) Rapid palpitations: Status: Acute (5) CKD (chronic kidney disease): Status: Acute Reason for Visit Reason for Visit: N/V, cold sweats sent Heart [facility] Hospital Course Hospital Course Valerie High is a 81 year old female who presented to the hospital for chief complaint of nausea. Her symptoms started 5 days ago, she has noticed diaphoresis with her nausea however has not experienced orthopnea, PND, chest pain, febrile events. She is vaccinated with J&J COVID-19 vaccine. He has not experienced the symptoms when she is walking her dog. Last 5 days whenever she tried to eat her nausea would get worse. She has not noticed any abdominal pain, emesis, diarrhea. Her antihypertensive regimen has been adjusted by assistant athletic trainer. No recent change in her diet. For her angina equivalent symptoms, stress test was requested. Dr. Johnson called to tell me about the results and recommended outpatient close follow-up with her.(No need of coronary intervention at this point) there were some PVCs noted during stress test as per Dr. Johnson Her metoprolol was held before this test was done. I would not add any other antianginal. She will resume her metoprolol and follow-up outpatient with assistant athletic trainer. Creatinine at the time of discharge 1.3, blood pressure 150/76 mmHg. We will add amlodipine 10 mg daily Lexiscan stress test ?IMPRESSIONS ?1. Small sized reversible perfusion abnormality of mild severity of mid ?inferolateral and apical lateral banegas. ?2. This may represent small area of ischemia in circumflex artery territory. ?3. Overall left ventricular systolic function is normal without regional wall ?motion abnormalities. ?4. The left ventricular ejection fraction is hyperdynamic with a value of 80%. ?5.? No EKG changes with Lexiscan infusion.? Refer to separate report for ?details. ?6.? No prior similar studies to compare. Echo 24 June LV systolic function is normal with EF of 55-60% ?Grade 1 diastolic dysfunction ?Mild mitral regurgitation ?Mild tricuspid regurgitation ?No comparison studies are available Physical Exam Narrative: Very pleasant cooperative elderly female Saturating well on room air Abdomen soft S1, S2 Nonfocal neuro exam Looks euvolemic Discharge Data Studies Completed and Pending Completed Studies During Hospitalization Category Date Time Status CT abdomen pelvis w con* [id number] Urgent Cat Scan 06/24/21 11:27 Completed Sestamibi Stress Test Request Routine Exams 06/25/21 06:00 Completed XR chest 1V portable [id number] Stat Exams 06/24/21 15:12 Completed NM vini perf SPECT r/s* [id number] Routine Nuc Med 06/25/21 17:17 Completed CV. echo complete* [id number] Routine Ultrasound 06/24/21 Completed Pending at discharge Category Date Time Status [employer] [Coronavirus PCR] Stat Lab 06/25/21 12:28 Uncollected Radiology Impressions Abdomen/Pelvis CT 06/24/21 11:27 IMPRESSION: 1. No acute abdominal or pelvic abnormality identified. 2. Prior cholecystectomy and appendectomy. 3. Chronic focal scar mid LEFT kidney. 4. Atherosclerosis aorta. Chest X-Ray 06/24/21 15:12 IMPRESSION: Unremarkable chest. No acute findings. Laboratory Results WBC 8.9 10^3/uL (4.0-10.0) 06/25/21 03:58 RBC 3.92 10^6/uL (4.1-5.3) L 06/25/21 03:58 Hgb 12.0 g/dL (11.5-15.3) 06/25/21 03:58 Hct 38.1 % (37.0-47.0) 06/25/21 03:58 MCV 97.2 fl (81-99) 06/25/21 03:58 MCH 30.6 pg (28.0-34.0) 06/25/21 03:58 MCHC 31.5 g/dL (30.0-36.0) 06/25/21 03:58 RDW 12.5 % (12.1-15.1) 06/25/21 03:58 Plt Count 229 10^3/cmm (130-400) 06/25/21 03:58 MPV 10.0 fL (7.4-10.4) 06/25/21 03:58 Neut % (Auto) 47.7 % 06/25/21 03:58 Lymph % (Auto) 39.2 % 06/25/21 03:58 [place] % (Auto) 8.1 % 06/25/21 03:58 Eos % (Auto) 3.6 % 06/25/21 03:58 Baso % (Auto) 0.9 % 06/25/21 03:58 Neut # (Auto) 4.23 10^3/uL (1.8-7.7) 06/25/21 03:58 Lymph # (Auto) 3.5 10^3/uL (0.8-4.8) 06/25/21 03:58 [place] # (Auto) 0.7 10^3/uL (0.2-0.9) 06/25/21 03:58 Eos # (Auto) 0.3 10^3/uL (0.0-0.8) 06/25/21 03:58 Baso # (Auto) 0.1 10^3/uL (0.0-0.1) 06/25/21 03:58 Nucleated RBC % (auto) 0 % 06/25/21 03:58 Nucleated RBCs # 0.0 /100WBC 06/25/21 03:58 Sodium 140 mmol/L (136-145) 06/25/21 03:58 Potassium 4.5 mmol/L (3.5-5.1) 06/25/21 03:58 Chloride 105 mmol/L (98-107) 06/25/21 03:58 Carbon Dioxide 22 mmol/L (22-29) 06/25/21 03:58 Anion Gap 17.5 (5-19) 06/25/21 03:58 BUN 19 mg/dL (8-23) 06/25/21 03:58 Creatinine 1.3 mg/dL (0.5-0.9) H 06/25/21 03:58 GFR Calculation Not Reportable 06/25/21 03:58 Glucose 95 mg/dL (65-115) 06/25/21 03:58 POC Glucose 131 mg/dL (70-110) H 06/25/21 11:25 Calculated Osmolality 292 mOsm/kg (285-295) 06/25/21 03:58 Calcium 10.2 mg/dL (8.5-10.5) 06/25/21 03:58 Total Bilirubin 0.2 mg/dL (0.15-1.2) 06/24/21 11:24 AST 18 U/L (0-32) 06/24/21 11:24 ALT 18 U/L (0-33) 06/24/21 11:24 Alkaline Phosphatase 94 IU/L (35-105) 06/24/21 11:24 Troponin T Baseline 6 ng/L (0-10) 06/24/21 11:24 Troponin T 120 Minute 9.61 ng/L (0-10) 06/24/21 13:21 Delta Troponin T 3.61 ABS# (0-10) 06/24/21 13:21 Troponin T Hi Sens 6Hr 13.75 ng/L (0-10) H 06/24/21 18:18 Troponin T Hi Sens 6Hr Delta 7.75 ng/L (0-12) 06/24/21 18:18 Total Protein 7.3 g/dL (6.6-8.7) 06/24/21 11:24 Albumin 4.3 g/dL (3.5-5.2) 06/24/21 11:24 Globulin 3.0 g/dL (1.3-4.6) 06/24/21 11:24 Lipase 29 U/L (13-60) 06/24/21 11:24 Urine Color Straw (Yellow) 06/24/21 12:35 Urine Appearance Clear (CLEAR) 06/24/21 12:35 Urine pH 8 (5-7) H 06/24/21 12:35 Ur Specific Stollings 1.005 (1.005-1.030) 06/24/21 12:35 Urine Protein Neg (Negative) 06/24/21 12:35 Urine Glucose (UA) Norm (Normal) 06/24/21 12:35 Urine Ketones Negative (Negative) 06/24/21 12:35 Urine Blood Neg (Negative) 06/24/21 12:35 Urine Nitrate Negative (Negative) 06/24/21 12:35 Urine Bilirubin Neg (Negative) 06/24/21 12:35 Prot Sulfosalicylic Acd Negative (Negative) 06/24/21 12:35 Urine Urobilinogen Norm mg/dL (Negative) 06/24/21 12:35 Ur Leukocyte Esterase Negative (Negative) 06/24/21 12:35 Coronavirus 229E (PCR) Not detected (NOT DETECT) 06/24/21 11:39 SARS-CoV-2 (PCR) Not detected (NOT DETECT) 06/24/21 11:39 Vitals Last Vital Signs Temp 96.9 F L 06/25/21 09:09 Pulse 100 06/25/21 11:26 Resp 19 H 06/25/21 11:26 BP 150/76 06/25/21 11:26 Pulse Ox 96 06/25/21 11:26 Discharge Plan Discharge Patient Disposition: Home Condition: Stable Prescriptions: New amlodipine 10 mg tablet 10 mg PO DAILY Qty: 30 0RF Zofran 4 mg tablet 4 mg PO DAILY PRN (Reason: nausea and vomiting) Qty: 20 0RF Continued aspirin [Adult Aspirin Regimen] 81 mg tablet,delayed release (DR/EC) 81 mg PO DAILY 0RF magnesium 250 mg tablet 250 mg PO BID 0RF Rx Instructions: SEE PHARMACY COMMENT calcium carbonate [Calcium 600] 600 mg calcium (1,500 mg) tablet 600 mg PO DAILY 0RF zinc 50 mg tablet 50 mg PO DAILY 0RF vitamin B complex [B Complex-Vitamin B12] Tablet 1 tab PO DAILY 0RF Restasis MultiDose 0.05 % drops 1 drp ophthalmic (eye) Q12H 0RF ketoconazole 2 % cream 1 applic topical BID PRN (Reason: Pain) 0RF omeprazole 40 mg capsule,delayed release(DR/EC) 40 mg PO DAILY 90 Days Qty: 90 3RF rosuvastatin 10 mg tablet 10 mg PO DAILY 90 Days Qty: 90 3RF vitamin E (dl, acetate) 400 unit capsule 400 unit PO DAILY 0RF clobetasol 0.05 % cream 1 applic topical DAILY Qty: 60 2RF valsartan 160 mg tablet 160 mg PO BID Qty: 180 3RF potassium 99 mg Tablet 99 mg PO DAILY 0RF cholecalciferol (vitamin D3) [Vitamin D3] 125 mcg (5,000 unit) Tablet 125 mcg PO DAILY 0RF Probiotic Acidophilus Biobeads 12.9 mg (2 billion cell) Tablet,Delayed Release (Dr/Ec) 1 tab PO DAILY 0RF biotin 5,000 mcg Tablet,Disintegrating 5,000 mcg PO DAILY 0RF multivitamin Tablet 1 tab PO DAILY 0RF doxazosin 1 mg tablet 1 mg PO DAILY 0RF spironolactone 100 mg tablet 100 mg PO BID 0RF Changed metoprolol tartrate 50 mg tablet 50 mg PO BID Qty: 20 0RF Discharge Orders: Discharge Order (Routine); Ordered 06/25/21 Ordered By: Jm Blas Referrals: Natasha Johnson MD [Physician] - 4-7 days Higgins,AARON Aly [Primary Care Provider] - Patient Instructions: Opioid Safety Discharge Attestations Time Spent in Discharge Care*: less than 30 min Quality Metrics Clinical Quality Measures [ No reported AMI, CVA or VTE this stay] Coding Level of Care Code Acute Chg FW DC note Diagnoses Abdominal pressure R10.9 Nausea R11.0 Diaphoresis R61 Rapid palpitations R00.2 CKD (chronic kidney disease) N18.9
[2021-06-25] MEDS: metoprolol tartrate 50 mg Tablet PO (13:17)
[2021-06-25 15:31] LABS: Adenovirus Not Detected (NOT DETECT); Chlamydia Pneumoniae Not Detected (NOT DETECT); Coronavirus 229E,HKU1,NL63,OC4 Not Detected (NOT DETECT); Human Metapneumovirus Not Detected (NOT DETECT); Human Rhinovirus/Enterovirus Not Detected (NOT DETECT); Influenza A Not Detected (NOT DETECT); Influenza A H1 Not Detected (NOT DETECT); Influenza A H1-2009 Not Detected (NOT DETECT); Influenza A H3 Not Detected (NOT DETECT); Influenza B Not Detected (NOT DETECT); Mycoplasma Pneumoniae Not Detected (NOT DETECT); Parainfluenza Virus Type 1 Not Detected (NOT DETECT); Parainfluenza Virus Type 2 Not Detected (NOT DETECT); Parainfluenza Virus Type 3 Not Detected (NOT DETECT); Parainfluenza Virus Type 4 Not Detected (NOT DETECT); Respiratory Syncytial Virus A Not Detected (NOT DETECT); Respiratory Syncytial Virus B Not Detected (NOT DETECT); SARS-COV-2 Not Detected (NOT DETECT)
[2021-06-25 16:15] LABS: Glucose Point of Care 115 mg/dL (70-110)
--- NOTE | 2021-06-25 17:17 | NMCV_ITS ---
NM vini perf SPECT r/s* [id number] aVlerie High Age: 81 Gender: F : 1940 Exam Date: 06/25/2021 17:17 Ordering Phys: Jm Blas MD Technologist: SNEHA Urbina Exam Location: [facility] Indications: Exertional dyspnea, chest pain STRESS TEST Please [facility] IMAGE PROTOCOL Rest/Stress 1 Lexiscan Day Radiopharmaceutical Dose (mCi) Administration Site Administered by Rest: Tc-99m 10.8 IV SNEHA Kwon Sestamibi Stress:Tc-99m 32.7 IV SENHA Kwon Sestamibi Rest: 25-Jun-2021 60 Discovery 630 Stress: 25-Jun-2021 30 Discovery 630 0.4mg Lexiscan. Supine position only as patient was unable to lay prone. SPECT RESULTS Technical Quality: Excellent Raw Data Analysis: Normal Image Corrections: No attenuation or motion correction applied Summed Stress Score: 2 Summed Rest Score: 0 Summed Difference Score: 2 PERFUSION FINDINGS Small sized perfusion abnormality of mild severity of mid inferolateral and apical lateral wall on supine stress images. FUNCTIONAL RESULTS (calculated via Gated SPECT) Stress Image LV EF (%): 80 Stress EDV (mL):65 TID: 0.9 Stress ESV (mL):13 FUNCTIONAL FINDINGS: The left ventricle is normal in size. Transient Ischemia Dilatation of 0.9. There is normal left ventricular systolic function. The left ventricular ejection fraction is normal with a value of 80%. There is normal left ventricular wall thickening with no regional wall motion abnormality. Normal end-diastolic end-systolic volumes. IMPRESSIONS 1. Small sized reversible perfusion abnormality of mild severity of mid inferolateral and apical lateral banegas. 2. This may represent small area of ischemia in circumflex artery territory. 3. Overall left ventricular systolic function is normal without regional wall motion abnormalities. 4. The left ventricular ejection fraction is hyperdynamic with a value of 80%. 5. No EKG changes with Lexiscan infusion. Refer to separate report for details. 6. No prior similar studies to compare. Natasha Johnson MD (Electronically Signed) Final Date: 25 June 2021 11:15 S
--- NOTE | 2021-06-25 17:32 | PC.NURSE ---
Discharge Note Patient discharged to home via private vehicle accompanied by spouse. All lines removed. Discharge instructions reviewed with patient and/or field sales representative. Patient verbalized understanding of all teaching. Mobile pharmacy medications and/or prescriptions provided. Belongings/home medications returned.
== END 2021-06-25 17:05 | disposition home or self-care (01) ==
LOC: ER 14:35 → CSU 16:37
PROVIDERS: Admitting Provider Student in an Organized Health Care Education/Training Program; Emergency Provider Emergency Medicine; PCP Nurse Practitioner Family; Visit Provider Internal Medicine
DX: R11.0 Nausea (principal); R10.9 Unspecified abdominal pain; R61 Generalized hyperhidrosis; R00.2 Palpitations; I12.9 Hypertensive chronic kidney disease with stage 1 through stage 4 chronic kidney disease, or unspecified chronic kidney disease; E11.22 Type 2 diabetes mellitus with diabetic chronic kidney disease; N18.9 Chronic kidney disease, unspecified; Z79.82 Long term (current) use of aspirin; I48.91 Unspecified atrial fibrillation; K21.9 Gastro-esophageal reflux disease without esophagitis; E78.00 Pure hypercholesterolemia, unspecified; Z86.73 Personal history of transient ischemic attack (TIA), and cerebral infarction without residual deficits
CPT/HCPCS: 36415; 36416; 71045; 74177; 78452; 80048; 80053; 81003; 82962; 83690; 84484; 85025; 87635; 93005; 93017; 93306; 96361; 96372; 96374; 96375; 99285; A9500; G0378; J1650; J2405; J2785; J3490; J7040; Q9967

== ENCOUNTER → 2021-07-02 13:40 | Outpatient (BNVA) | payer MEDICARE, OTHER, SELFPAY | PROVIDERS: PCP Nurse Practitioner Family; Visit Provider Nurse Practitioner Family | DX: Z09 Encounter for follow-up examination after completed treatment for conditions other than malignant neoplasm (principal); I10 Essential (primary) hypertension; I49.3 Ventricular premature depolarization; E11.9 Type 2 diabetes mellitus without complications | CPT/HCPCS: 99214 ==

== ENCOUNTER → 2021-07-16 10:46 | Outpatient (BNVA) | payer MEDICARE, OTHER, SELFPAY | PROVIDERS: PCP Nurse Practitioner Family; Visit Provider Internal Medicine Cardiovascular Disease | DX: I11.0 Hypertensive heart disease with heart failure (principal); I50.9 Heart failure, unspecified; I48.21 Permanent atrial fibrillation | CPT/HCPCS: 99214 ==

== ENCOUNTER 2021-07-23 09:22 | Outpatient (CLI) | payer MEDICARE, OTHER, SELFPAY ==
[2021-07-23 10:54] LABS: Anion Gap 16.2 (5-19); Blood Urea Nitrogen 38 mg/dL (8-23); Calcium 10.3 mg/dL (8.5-10.5); Carbon Dioxide 23 mmol/L (22-29); Chloride 98 mmol/L (98-107); Glucose 106 mg/dL (65-115); Magnesium 2.3 mg/dL (1.7-2.3); NT Pro B Type Natriuretic Pept 290 pg/mL (0-450); Osmolality Calculated 283 mOsm/kg (285-295); Potassium 5.2 mmol/L (3.5-5.1); Sodium 132 mmol/L (136-145)
== END 2021-07-23 09:23 | disposition home or self-care (01) ==
LOC: LAB 09:29
PROVIDERS: PCP Nurse Practitioner Family; Visit Provider Internal Medicine Cardiovascular Disease
DX: E78.00 Pure hypercholesterolemia, unspecified (principal); I10 Essential (primary) hypertension; I48.21 Permanent atrial fibrillation
CPT/HCPCS: 80048; 83735; 83880

== ENCOUNTER → 2021-07-29 11:59 | Outpatient (BNVA) | payer MEDICARE, OTHER, SELFPAY | PROVIDERS: PCP Nurse Practitioner Family; Visit Provider Internal Medicine Cardiovascular Disease | DX: I48.21 Permanent atrial fibrillation (principal); I50.9 Heart failure, unspecified; I11.0 Hypertensive heart disease with heart failure | CPT/HCPCS: 80048; 83735; 83880 ==

== ENCOUNTER → 2021-08-12 10:16 | Outpatient (BNVA) | payer MEDICARE, OTHER, SELFPAY | PROVIDERS: PCP Nurse Practitioner Family; Visit Provider Internal Medicine Cardiovascular Disease | DX: E78.00 Pure hypercholesterolemia, unspecified (principal); I50.9 Heart failure, unspecified | CPT/HCPCS: 80048; 83735; 83880 ==

== ENCOUNTER → 2021-08-13 12:40 | Outpatient (BNVA) | payer MEDICARE, OTHER, SELFPAY | PROVIDERS: PCP Nurse Practitioner Family; Visit Provider Nurse Practitioner Family | DX: I13.0 Hypertensive heart and chronic kidney disease with heart failure and stage 1 through stage 4 chronic kidney disease, or unspecified chronic kidney disease (principal); E11.22 Type 2 diabetes mellitus with diabetic chronic kidney disease; N18.9 Chronic kidney disease, unspecified; I50.9 Heart failure, unspecified; I87.2 Venous insufficiency (chronic) (peripheral) | CPT/HCPCS: 99214 ==

== ENCOUNTER 2021-09-19 12:32 | Outpatient (CLI) | payer MEDICARE, OTHER, SELFPAY ==
--- NOTE | 2021-09-19 12:30 | USCV_ITS ---
Valerie High Age: 81 Gender: F : 1940 Exam Date: 09/19/2021 12:46 Ordering Phys: Landy Valadez Technologist: Heri Morel Exam Location: [facility] [place]_ Indication: HISTORY: PROCEDURES: FINDINGS: There is no evidence of bilateral deep vein thrombosis. No evidence of superficial thrombosis in the bilateral saphenous system. No evidence of reflux was noted in the bilateral deep venous system. No venous reflux noted in the bilateral greater saphenous vein. No venous reflux noted in the bilateral small saphenous vein. The veins were found to be easily compressible with spontaneous blood flow. Non pulsatile flow pattern. CONCLUSIONS No evidence of deep vein or superficial vein thrombosis in the above- mentioned identifiable veins. No significant refluxes were noted either in the superficial or in the deep veins, as mentioned above Dr Kristen Beatty MD [facility] (Electronically Signed) Final Date: 21 September 2021 10:35 S
== END 2021-09-19 12:33 | disposition home or self-care (01) ==
LOC: RAD 12:33
PROVIDERS: PCP Nurse Practitioner Family; Visit Provider Nurse Practitioner Family
DX: I10 Essential (primary) hypertension (principal); I87.2 Venous insufficiency (chronic) (peripheral)
CPT/HCPCS: 93970

== ENCOUNTER 2021-10-12 11:51 | Emergency (ER) | payer MEDICARE, OTHER, SELFPAY ==
[2021-10-12 12:22] VITALS: BP 143/79; PULSE 65; RESP 18; TEMP 37.1; O2SAT 96; BMI 27.3
--- NOTE | 2021-10-12 13:15 | XRR_ITS ---
PROCEDURE INFORMATION: Exam: XR Chest Exam date and time: 10/12/2021 2:04 PM Age: 81 years old Clinical indication: Cough; Additional info: Covid-positive, cough TECHNIQUE: Imaging protocol: Radiologic exam of the chest. Views: 1 view. COMPARISON: CR XR chest 1V portable [id number] 06/24/2021 3:16 PM FINDINGS: Lungs: Unremarkable. No consolidation. Pleural spaces: Unremarkable. No pleural effusion. No pneumothorax. Heart/Mediastinum: Unremarkable. No cardiomegaly. Bones/joints: Unremarkable. XR/XR chest 1V portable [id number] IMPRESSION: No acute findings.
--- NOTE | 2021-10-12 14:25 | W.ED.GENADLT ---
HPI - General Adult General: Chief complaint: General Medical Stated complaint: Cough, diarriah, dizzy Time Seen by Provider: 10/12/21 13:24 History of Present Illness: Patient is an 81-year-old female comes to the ED with fever, diarrhea nausea. Patient's symptoms started 4 days ago. She has a history of chronic kidney disease, CHF, hypertension, A. fib, diabetes and GERD. She took an at home COVID test and it was positive. She reports having fevers, nausea and dry cough. She is also having bad diarrhea over the last 24 hours as well. She has been having episodes of diarrhea almost every 1-2 hours today. She describes her stool as watery. She has a decreased appetite due to her nausea and is trying to drink fluids. She feels little dehydrated and fatigued as well. She contacted her PCP once symptoms started and they put her on an antibiotic. Associated symptoms: Reports nausea; Deny chest pain, dyspnea, headache(s), rash, palpitations or vomiting Review of Systems Const: Reports: fever(s), body aches, change in appetite (Decreased) and fatigue; Denies: chills Eyes: Denies: change in vision or eye discomfort ENMT: Denies: throat pain, odynophagia, nasal discharge or nasal congestion Card: Denies: chest pain, palpitations, edema, swelling of feet/ankles, dyspnea on exertion or orthopnea Resp: Reports: non-productive cough; Denies: dyspnea or productive cough GI: Reports: nausea and diarrhea; Denies: abdominal pain, vomiting, constipation or hematochezia : Denies: flank pain, dysuria or hematuria Musc: Denies: neck pain, back pain or extremity swelling Skin/Breast: Denies: rash or new lesions Neuro: Denies: headache(s), numbness in extremities or weakness in extremities PFS ED PFSH: Medical History A-fib CHF (congestive heart failure), NYHA class III CKD (chronic kidney disease) Diabetes mellitus Diaphoresis GERD (gastroesophageal reflux disease) History of basal cell carcinoma (BCC) History of seizure History of stroke HTN (hypertension) Hx-TIA (transient ischemic attack) Hypercholesterolemia Lower extremity edema Premature ventricular contraction Rapid palpitations Surgical History S/P appendectomy S/P bladder repair S/P cataract surgery S/P cholecystectomy S/P hysterectomy Family History Other CAD (coronary artery disease) Social History Smoking and tobacco status: never smoked Alcohol intake: never Female Reproductive History: Spontaneous abortions: No Physical Exam Const: COMMON NORMALS: no acute distress, patient oriented x3 and alert GENERAL APPEARANCE: cooperative and comfortable HENMT: COMMON NORMALS: normocephalic HEAD & SCALP: normocephalic MOUTH: Normal oral and palatal mucosa present THROAT: posterior oropharynx normal and uvula midline Neck/C-Spine: COMMON NORMALS: supple GENERAL: Yes normal visual inspection Resp: COMMON NORMALS: normal respiratory effort, No retractions, No use of accessory muscles and clear to auscultation bilaterally AUSCULTATION: clear to auscultation bilaterally Cardio: COMMON NORMALS: regular rate, regular rhythm, S1 normal heart sound present, S2 normal heart sound present, No gallops present (Cardio), No clicks present (Cardio), No murmurs present (Cardio) and Peripheral pulses 2+ throughout RATE: regular rate RHYTHM: regular rhythm HEART SOUNDS: S1 normal heart sound present and S2 normal heart sound present PERIPHERAL PULSES: Peripheral pulses 2+ throughout GI: COMMON NORMALS: Normal to inspection, nondistended, normoactive bowel sounds present, Soft to palpation, non-tender and no masses PALPATION: Yes Soft to palpation : COMMON NORMALS: Yes no CVA tenderness BLADDER/KIDNEY EXAM: Yes no CVA tenderness Back/Pelvis: COMMON NORMALS: no CVA tenderness Extremity: COMMON NORMALS: normal to inspection and no pedal edema Neuro: COMMON NORMALS: patient oriented x3 and moves all extremities SENSORIUM/ORIENTATION: Yes alert Skin: GENERAL SKIN EXAM: dry skin Course Vital Signs: Vital signs: Vital Signs Temperature 98.8 F 10/12/21 12:22 Pulse Rate 65 10/12/21 12:22 Respiratory Rate 18 10/12/21 12:22 Blood Pressure 143/79 10/12/21 12:22 Pulse Oximetry 96 10/12/21 12:22 [facility] - General Adult Medical Decision Making Patient is an 81-year-old female comes to the ED with fever, diarrhea nausea. Patient's symptoms started 4 days ago. Vitals are stable. Exam is benign. Potassium 5.3 and creatinine was 2.0. Reviewing patient's past creatinine labs shows that her serum creatinine is usually around 1.8, so current creatinine was just slightly elevated above normal. The rest of labs were unremarkable. Patient's COVID lab was positive. EKG showed no acute findings. chest x-ray showed no acute findings. In the ED patient received half a liter of IV fluids and some nausea medications and was feeling better. She was stable for discharge home. She was told to follow-up with her PCP in the next 3 to 5 days to get reevaluated and to recheck her creatinine and potassium lab. Patient was diagnosed with COVID-19, elevated serum creatinine and hyperkalemia. She was discharged home with some Zofran to help with nausea. Strict return to ED precautions given. Patient understood and agreed with plan. Lab Data I reviewed the patient's lab results. : 10/12/21 16:22 10/12/21 16:22 Radiology Impressions Chest X-Ray 10/12/21 13:15 IMPRESSION: No acute findings. Laboratory Results WBC 4.0 10^3/uL (4.0-10.0) 10/12/21 16: RBC 4.76 10^6/uL (4.1-5.3) 10/12/21 16:22 Hgb 14.2 g/dL (11.5-15.3) 10/12/21 16: Hct 42.8 % (37.0-47.0) 10/12/21 16: MCV 89.9 fl (81-99) 10/12/21 16:22 MCH 29.8 pg (28.0-34.0) 10/12/21 16: MCHC 33.2 g/dL (30.0-36.0) 10/12/21 16: RDW 11.9 % (12.1-15.1) L 10/12/21 16: Plt Count 225 10^3/cmm (130-400) 10/12/21 16: MPV 10.3 fL (7.4-10.4) 10/12/21 16: Neut % (Auto) 42.7 % 10/12/21 16:22 Lymph % (Auto) 45.6 % 10/12/21 16:22 [place] % (Auto) 9.6 % 10/12/21 16:22 Eos % (Auto) 0.8 % 10/12/21 16:22 Baso % (Auto) 0.5 % 10/12/21 16: Neut # (Auto) 1.69 10^3/uL (1.8-7.7) L 10/12/21 16:22 Lymph # (Auto) 1.8 10^3/uL (0.8-4.8) 10/12/21 16: [place] # (Auto) 0.4 10^3/uL (0.2-0.9) 10/12/21 16: Eos # (Auto) 0.0 10^3/uL (0.0-0.8) 10/12/21 16: Baso # (Auto) 0.0 10^3/uL (0.0-0.1) 10/12/21 16: Nucleated RBC % (auto) 0 % 10/12/21 16: Nucleated RBCs # 0.0 /100WBC 10/12/21 16:22 Sodium 132 mmol/L (136-145) L 10/12/21 16:22 Potassium 5.3 mmol/L (3.5-5.1) H 10/12/21 16: Chloride 95 mmol/L (98-107) L 10/12/21 16: Carbon Dioxide 24 mmol/L (22-29) 10/12/21 16:22 Anion Gap 18.3 (5-19) 10/12/21 16:22 BUN 31 mg/dL (8-23) H 10/12/21 16:22 Creatinine 2.0 mg/dL (0.5-0.9) H 10/12/21 16:22 GFR Calculation Not Reportable 10/12/21 16:22 Glucose 98 mg/dL (65-115) 10/12/21 16:22 Calculated Osmolality 281 mOsm/kg (285-295) L 10/12/21 16:22 Calcium 9.5 mg/dL (8.5-10.5) 10/12/21 16:22 Total Bilirubin 0.2 mg/dL (0.15-1.2) 10/12/21 16:22 AST 33 U/L (0-32) H 10/12/21 16:22 ALT 22 U/L (0-33) 10/12/21 16:22 Alkaline Phosphatase 118 IU/L (35-105) H 10/12/21 16:22 Total Protein 7.8 g/dL (6.6-8.7) 10/12/21 16:22 Albumin 4.2 g/dL (3.5-5.2) 10/12/21 16:22 Globulin 3.6 g/dL (1.3-4.6) 10/12/21 16:22 SARS-CoV-2 Ag (Rapid) Positive (Negative) H 10/12/21 16:22 EKG Data EKG 1: EKG interpretation date: 10/12/21 Interpretation: Sinus bradycardia, 53 bpm, no ST segment elevation or depression seen. Computer generated interpretation: Chest X-Ray 10/12/21 13:15 IMPRESSION: No acute findings. Discharge Plan Discharge Patient Disposition: Home Clinical Impression: COVID-19, Elevated serum creatinine, Hyperkalemia Condition: Stable Prescriptions: New ondansetron 4 mg tablet,disintegrating 4 mg PO Q8H PRN (Reason: nausea and vomiting) Qty: 15 0RF No Action aspirin [Adult Aspirin Regimen] 81 mg tablet,delayed release (DR/EC) 81 mg PO DAILY 0RF magnesium 250 mg tablet 250 mg PO BID 0RF Rx Instructions: SEE PHARMACY COMMENT calcium carbonate [Calcium 600] 600 mg calcium (1,500 mg) tablet 600 mg PO DAILY 0RF zinc 50 mg tablet 50 mg PO DAILY 0RF vitamin B complex [B Complex-Vitamin B12] Tablet 1 tab PO DAILY 0RF Restasis MultiDose 0.05 % drops 1 drp ophthalmic (eye) Q12H 0RF ketoconazole 2 % cream 1 applic topical BID PRN (Reason: Pain) 0RF omeprazole 40 mg capsule,delayed release(DR/EC) 40 mg PO DAILY 90 Days Qty: 90 3RF rosuvastatin 10 mg tablet 10 mg PO DAILY 90 Days Qty: 90 3RF vitamin E (dl, acetate) 400 unit capsule 400 unit PO DAILY 0RF clobetasol 0.05 % cream 1 applic topical DAILY Qty: 60 2RF mupirocin 2 % ointment 1 applic topical BID Qty: 22 1RF Rx Instructions: Apply to affected area(s) until healed potassium gluconate 600 mg (99 mg) tablet 600 mg PO DAILY 0RF doxazosin 1 mg tablet 1 mg PO DAILY Qty: 90 3RF valsartan 160 mg tablet 160 mg PO DAILY Qty: 90 3RF spironolactone 100 mg tablet 150 mg PO DIRECTED 0RF Rx Instructions: 100mg in AM and 50mg in PM furosemide 20 mg tablet 20 mg PO DAILY Qty: 90 0RF amlodipine 10 mg tablet 10 mg PO DAILY Qty: 90 3RF cholecalciferol (vitamin D3) [Vitamin D3] 125 mcg (5,000 unit) Tablet 125 mcg PO DAILY 0RF Probiotic Acidophilus Biobeads 12.9 mg (2 billion cell) Tablet,Delayed Release (Dr/Ec) 1 tab PO DAILY 0RF biotin 5,000 mcg Tablet,Disintegrating 5,000 mcg PO DAILY 0RF multivitamin Tablet 1 tab PO DAILY 0RF metoprolol tartrate 50 mg tablet 50 mg PO BID Qty: 20 0RF Zofran 4 mg tablet 4 mg PO DAILY PRN (Reason: nausea and vomiting) Qty: 20 0RF nitroglycerin 0.4 mg tablet, sublingual 0.4 mg sublingual Q5M Qty: 20 0RF Rx Instructions: do not exceed 3 doses per episode Discharge Orders: Discharge ED (Routine); Ordered 10/12/21 Ordered By: Cuauhtemoc Mo Referrals: Sheeba Higgins FNP [Primary Care Provider] - Discharge Diet: Regular Discharge Activity: Increase activity as tolerated Patient Instructions: COVID-19 (Coronavirus Disease 2019) (ED) Activity Restrictions/Additional Instructions: Follow-up with medical provider as directed in the next 3 to 5 days for reevaluation. Have your PCP check your Potassium and creatinine levels at your next visit. Make sure you drink plenty of fluids and stay hydrated. Continue taking all home medications as prescribed. Return to the ER or your medical provider if condition worsens. Please read and understand discharge instructions. Thank you for choosing [facility] for your healthcare needs today. Please realize this is an emergency room and that we are providing you with a medical screening exam and this may not be complete and all inclusive of all the testing and or work up that you may need to determine your ailment or severity of your illness. It is very important that you follow up as instructed or that you return to the Emergency Department should you have concerns or if your condition changes or worsens in any way. Coding Level of Care Code ED Otolaryngology Surgeon for Liang De La Rosa Exam Comprehensive
[2021-10-12] MEDS: ondansetron 2 mg/ML SDV 2 mL 4 MG IVP (16:25)
[2021-10-12] MEDS: sodium chloride 0.9% 500 ML 999 ML IV (16:26)
[2021-10-12 16:31] LABS: Basophils % 0.5 %; Eosinophils % 0.8 %; Hematocrit 42.8 % (37.0-47.0); Hemoglobin 14.2 g/dL (11.5-15.3); Lymphocytes # 1.8 10^3/uL (0.8-4.8); Lymphocytes % 45.6 %; Mean Corpuscular HGB Conc 33.2 g/dL (30.0-36.0); Mean Corpuscular Hemoglobin 29.8 pg (28.0-34.0); Mean Corpuscular Volume 89.9 fl (81-99); Mean Platelet Volume 10.3 fL (7.4-10.4); Monocytes # 0.4 10^3/uL (0.2-0.9); Monocytes % 9.6 %; Neutrophils # 1.69 10^3/uL (1.8-7.7); Neutrophils % 42.7 %; Nucleated Red Blood Cells % 0 %; Platelet Count 225 10^3/cmm (130-400); Red Blood Count 4.76 10^6/uL (4.1-5.3); Red Cell Distribution Width 11.9 % (12.1-15.1)
[2021-10-12 16:50] LABS: SARS Covid-2 Antigen Positive (Negative)
[2021-10-12 16:54] LABS: Alanine Aminotransferase 22 U/L (0-33); Albumin Level 4.2 g/dL (3.5-5.2); Alkaline Phosphatase 118 IU/L (35-105); Blood Urea Nitrogen 31 mg/dL (8-23); Calcium 9.5 mg/dL (8.5-10.5); Carbon Dioxide 24 mmol/L (22-29); Chloride 95 mmol/L (98-107); Globulin 3.6 g/dL (1.3-4.6); Glucose 98 mg/dL (65-115); Osmolality Calculated 281 mOsm/kg (285-295); Sodium 132 mmol/L (136-145); Total Bilirubin 0.2 mg/dL (0.15-1.2); Total Protein 7.8 g/dL (6.6-8.7)
[2021-10-12 16:58] LABS: Anion Gap 18.3 (5-19); Aspartate Amino Transferase 33 U/L (0-32); Potassium 5.3 mmol/L (3.5-5.1)
--- NOTE | 2021-10-12 17:01 | ECG_ITS ---
[facility] Test Date: 2021-10-12 Pat Name: Valerie High Department: Room: Gender: Female Cash Applications Analyst: : 1940 Requested By: Cuauhtemoc Mo Order Number: [id number] Hawkins MD: Maikel Canales M.D. Measurements Intervals [place] Rate: 53 P: 60 MS: 147 QRS: 59 QRSD: 81 T: 67 QT: 427 QTc: 403 Interpretive Statements SINUS BRADYCARDIA Compared to ECG 06/25/2021 00:42:10 Sinus rhythm no longer present Electronically Signed On 10-13-2021 12:29:47 CDT by Maikel Canales M.D. [id number]
== END 2021-10-12 18:10 | disposition home or self-care (01) ==
PROVIDERS: Emergency Provider Physician Assistant; PCP Nurse Practitioner Family
DX: U07.1 COVID-19 (principal); E87.5 Hyperkalemia; R79.89 Other specified abnormal findings of blood chemistry; Z79.82 Long term (current) use of aspirin; I11.0 Hypertensive heart disease with heart failure; I50.9 Heart failure, unspecified; E11.9 Type 2 diabetes mellitus without complications; Z86.73 Personal history of transient ischemic attack (TIA), and cerebral infarction without residual deficits
CPT/HCPCS: 71045; 80053; 85025; 87426; 93005; 96361; 96374; 99284; J2405; J7040

== ENCOUNTER → 2021-10-28 16:27 | Outpatient (BNVA) | payer MEDICARE, OTHER, SELFPAY | PROVIDERS: PCP Nurse Practitioner Family; Visit Provider Emergency Medicine | DX: M54.6 Pain in thoracic spine (principal); M43.14 Spondylolisthesis, thoracic region; M43.12 Spondylolisthesis, cervical region | CPT/HCPCS: 72072 ==

== ENCOUNTER → 2021-12-09 10:35 | Outpatient (BNVA) | payer MEDICARE, OTHER, SELFPAY | PROVIDERS: PCP Nurse Practitioner Family; Visit Provider Internal Medicine Cardiovascular Disease | DX: I13.0 Hypertensive heart and chronic kidney disease with heart failure and stage 1 through stage 4 chronic kidney disease, or unspecified chronic kidney disease (principal); N18.9 Chronic kidney disease, unspecified; I50.9 Heart failure, unspecified; Z86.73 Personal history of transient ischemic attack (TIA), and cerebral infarction without residual deficits | CPT/HCPCS: 99214 ==

== ENCOUNTER → 2022-06-12 14:27 | Outpatient (BNVA) | payer MEDICARE, OTHER, SELFPAY | PROVIDERS: PCP Nurse Practitioner Family; Visit Provider Nurse Practitioner Family | DX: I13.0 Hypertensive heart and chronic kidney disease with heart failure and stage 1 through stage 4 chronic kidney disease, or unspecified chronic kidney disease (principal); E11.22 Type 2 diabetes mellitus with diabetic chronic kidney disease; N18.9 Chronic kidney disease, unspecified; I50.9 Heart failure, unspecified; I48.21 Permanent atrial fibrillation | CPT/HCPCS: 99214 ==

== ENCOUNTER 2022-07-24 12:04 | Outpatient (CLI) | payer MEDICARE, OTHER, SELFPAY ==
[2022-07-25 14:14] LABS: Lyme AB Screen <0.90 index
[2022-07-29 16:55] LABS: RMSF IGG NOT DETECTED; RMSF IGM NOT DETECTED
[2022-07-29 21:19] LABS: E. Chaffeensis AB IGG <1:64; E. Chaffeensis AB IGM <1:20
== END 2022-07-24 12:05 | disposition home or self-care (01) ==
LOC: LAB 12:11
PROVIDERS: PCP Nurse Practitioner Family; Visit Provider Nurse Practitioner Family
DX: T14.8XXA Other injury of unspecified body region, initial encounter (principal); W57.XXXA Bitten or stung by nonvenomous insect and other nonvenomous arthropods, initial encounter
CPT/HCPCS: 36415; 86618; 86666; 86757

== ENCOUNTER → 2022-08-26 10:10 | Outpatient (BNVA) | payer MEDICARE, OTHER, SELFPAY | PROVIDERS: PCP Nurse Practitioner Family; Visit Provider Nurse Practitioner Family | DX: L82.1 Other seborrheic keratosis (principal); L90.0 Lichen sclerosus et atrophicus; L57.0 Actinic keratosis; D69.2 Other nonthrombocytopenic purpura; L81.4 Other melanin hyperpigmentation | CPT/HCPCS: 17000; 17003; 99214 ==

== ENCOUNTER → 2022-09-30 14:17 | Outpatient (BNVA) | payer MEDICARE, OTHER, SELFPAY | PROVIDERS: PCP Nurse Practitioner Family; Visit Provider Nurse Practitioner Family | DX: L90.0 Lichen sclerosus et atrophicus (principal); L65.0 Telogen effluvium; D69.2 Other nonthrombocytopenic purpura; D22.5 Melanocytic nevi of trunk | CPT/HCPCS: 99214 ==

== ENCOUNTER → 2022-12-18 11:00 | Outpatient (BNVA) | payer MEDICARE, OTHER, SELFPAY | PROVIDERS: PCP Nurse Practitioner Family; Visit Provider Internal Medicine Cardiovascular Disease | DX: I13.0 Hypertensive heart and chronic kidney disease with heart failure and stage 1 through stage 4 chronic kidney disease, or unspecified chronic kidney disease (principal); E11.22 Type 2 diabetes mellitus with diabetic chronic kidney disease; N18.9 Chronic kidney disease, unspecified; I50.9 Heart failure, unspecified; Z79.84 Long term (current) use of oral hypoglycemic drugs; Z86.73 Personal history of transient ischemic attack (TIA), and cerebral infarction without residual deficits; E78.00 Pure hypercholesterolemia, unspecified; I49.3 Ventricular premature depolarization | CPT/HCPCS: 99214 ==

== ENCOUNTER → 2022-12-31 14:22 | Outpatient (BNVA) | payer MEDICARE, OTHER, SELFPAY | PROVIDERS: PCP Nurse Practitioner Family; Visit Provider Nurse Practitioner Family | DX: L90.0 Lichen sclerosus et atrophicus (principal); L65.0 Telogen effluvium; D69.2 Other nonthrombocytopenic purpura; D22.5 Melanocytic nevi of trunk; L81.4 Other melanin hyperpigmentation | CPT/HCPCS: 99214 ==

== ENCOUNTER → 2023-01-20 13:33 | Outpatient (BNVA) | payer MEDICARE, OTHER, SELFPAY | PROVIDERS: PCP Nurse Practitioner Family; Visit Provider Nurse Practitioner Family | DX: L90.0 Lichen sclerosus et atrophicus (principal); R20.8 Other disturbances of skin sensation; D69.2 Other nonthrombocytopenic purpura; D22.5 Melanocytic nevi of trunk; L81.4 Other melanin hyperpigmentation | CPT/HCPCS: 99213 ==

== ENCOUNTER → 2023-03-03 11:15 | Outpatient (BNVA) | payer MEDICARE, OTHER, SELFPAY | PROVIDERS: PCP Nurse Practitioner Family; Visit Provider Nurse Practitioner Family | DX: L90.0 Lichen sclerosus et atrophicus (principal); D69.2 Other nonthrombocytopenic purpura; D22.5 Melanocytic nevi of trunk; L81.4 Other melanin hyperpigmentation | CPT/HCPCS: 99214 ==

== ENCOUNTER → 2023-05-14 11:22 | Outpatient (BNVA) | payer MEDICARE, OTHER, SELFPAY | PROVIDERS: PCP Nurse Practitioner Family; Visit Provider Dermatology | DX: L90.0 Lichen sclerosus et atrophicus (principal); L24.9 Irritant contact dermatitis, unspecified cause | CPT/HCPCS: 99214 ==

== ENCOUNTER → 2023-06-24 10:11 | Outpatient (BNVA) | payer MEDICARE, OTHER, SELFPAY | PROVIDERS: PCP Nurse Practitioner Family; Visit Provider Nurse Practitioner Family | DX: I13.0 Hypertensive heart and chronic kidney disease with heart failure and stage 1 through stage 4 chronic kidney disease, or unspecified chronic kidney disease (principal); I50.32 Chronic diastolic (congestive) heart failure; E11.22 Type 2 diabetes mellitus with diabetic chronic kidney disease; N18.9 Chronic kidney disease, unspecified; I50.9 Heart failure, unspecified | CPT/HCPCS: 99214 ==

== ENCOUNTER 2023-07-29 11:10 | Emergency (ER) | payer MEDICARE, OTHER, SELFPAY ==
--- NOTE | 2023-07-29 11:14 | XRR_ITS ---
PROCEDURE INFORMATION: Exam: XR Chest Exam date and time: 07/29/2023 11:35 AM Age: 83 years old Clinical indication: Fever TECHNIQUE: Imaging protocol: Radiologic exam of the chest. Views: 1 view. COMPARISON: CR XR chest 1V portable [id number] 10/12/2021 2:04 PM FINDINGS: Lungs: Unremarkable. No consolidation. Pleural spaces: Unremarkable. No pleural effusion. No pneumothorax. Heart/Mediastinum: Unremarkable. No cardiomegaly. Bones/joints: Unremarkable. XR/XR chest 1V portable [id number] IMPRESSION: No acute findings.
[2023-07-29 11:15] VITALS: BP 191/87; PULSE 91; RESP 18; TEMP 36.9; O2SAT 91; BMI 26.7
--- NOTE | 2023-07-29 11:36 | ED_ITS ---
HPI - Fever 2 General: Chief Complaint: Fever Stated Complaint: fever, cough, ear pain Time Seen by Provider: 07/29/23 11:36 Source: patient Mode of arrival: ambulatory History of Present Illness: 83-year-old female presents emergency ro om with complaint of cough fever and ear pain she was seen previously by her primary care provider and given doxycycline she stopped taking which did not seem to be helping she complained of persistent low-grade fever nasal drainage and minimally productive cough no vomiting no diarrhea MD elicited complaint: fever and malaise Associated symptoms: Deny abdominal pain, chills, chest pain or dysuria Review of Systems 2 Const: Denies: fever(s) or chills Card: Denies: chest pain Resp: Denies: dyspnea GI: Denies: abdominal pain : Denies: dysuria, urinary frequency or urinary urgency Musc: Denies: neck pain or back pain Skin/Breast: Denies: rash PFSH ED 2 PFSH: Medical History CHF (congestive heart failure), NYHA class III Diaphoresis Rapid palpitations Hx-TIA (transient ischemic attack) A-fib History of basal cell carcinoma (BCC) CKD (chronic kidney disease) History of stroke History of seizure Hypercholesterolemia Diabetes mellitus GERD (gastroesophageal reflux disease) Lower extremity edema HTN (hypertension) Premature ventricular contraction Surgical History S/P appendectomy S/P bladder repair S/P cholecystectomy S/P hysterectomy S/P cataract surgery Family History Other CAD (coronary artery disease) Social History Smoking and tobacco/nicotine status: never used tobacco/nicotine Alcohol intake: never Substance/Drug Use: never Female Reproductive History: Spontaneous abortions: No Physical Exam 2 Const: COMMON NORMALS: no acute distress GENERAL APPEARANCE: cooperative and comfortable ORIENTATION/CONSCIOUSNESS: Yes awake, Yes oriented to person, Yes oriented to place and Yes oriented to time HENMT: COMMON NORMALS: normocephalic, atraumatic and hearing grossly normal bilaterally HEAD & SCALP: normocephalic and atraumatic Resp: COMMON NORMALS: normal respiratory effort, No retractions, No use of accessory muscles and clear to auscultation bilaterally AUSCULTATION: clear to auscultation bilaterally Cardio: COMMON NORMALS: regular rate, regular rhythm and No murmurs present (Cardio) RATE: regular rate RHYTHM: regular rhythm GI: COMMON NORMALS: Soft to palpation and No hepatosplenomegaly present A USCULTATION: Yes normoactive bowel sounds PALPATION: Yes Soft to palpation, No Tenderness to palpation present (GI), No Guarding due to palpation present (GI) and Yes No hepatosplenomegaly present Extremity: COMMON NORMALS: normal to inspection, capillary refill normal, no clubbing, cyanosis or edema, no calf tenderness and no pedal edema Neuro: SENSORIUM/ORIENTATION: Yes oriented to person, Yes oriented to place and Yes oriented to time Skin: COMMON NORMALS: no rashes or lesions noted GENERAL SKIN EXAM: no rashes or lesions noted Course 2 Vital Signs: Vital signs: Vital Signs Temperature 98.4 F 07/29/23 11:15 Pulse Rate 81 07/29/23 11:49 Respiratory Rate 16 07/29/23 11:49 Blood Pressure 191/87 07/29/23 11:15 Pulse Oximetry 92 07/29/23 11:49 Oxygen Delivery Me thod Room Air 07/29/23 11:49 MDM - Fever Medical Decision Making Chest x-ray unremarkable CBC normal. On exam she does not note any significant findings she is complaining of sinus drainage and posterior nasal drainage we will put her on a course of Augmentin 875 twice daily for 10 days if having persistent cough beyond that follow-up with primary care Medical Records I reviewed the patient's medical records. Lab Data I reviewed the patient's lab results. 07/29/23 13:12 07/29/23 13:12 Radiology Impressions Chest X-Ray 07/29/23 11:14 IMPRESSION: No acute findings. Laboratory Results WBC 7.15 10^3/uL (3.29-11.43) 07/29/23 13:12 RBC 4.53 10^6/uL (3.85-5.65) 07/29/23 13:12 Hgb 13.70 g/dL (11.27-16.99) 07/29/23 13:12 Hct 42.0 % (36-47) 07/29/23 13:12 MCV 92.7 fl (85-98) 07/29/23 13:12 MCH 30.2 pg (27-33) 07/29/23 13:12 MCHC 32.6 g/dL (30-55) 07/29/23 13:12 RDW 12.3 % (12.1-15.1) 07/29/23 13:12 Plt Count 212 10^3/cmm (157-399) 07/29/23 13:12 MPV 9.7 fL (7.4-10.4) 07/29/23 13:12 Neut % (Auto) 71.4 % 07/29/23 13:12 Lymph % (Auto) 16.9 % 07/29/23 13:12 [place] % (Auto) 8.5 % 07/29/23 13:12 Eos % (Auto) 1.8 % 07/29/23 13:12 Baso % (Auto) 0.6 % 07/29/23 13:12 Neut # (Auto) 5.10 10^3/uL (1.8-7.7) 07/29/23 13:12 Lymph # (Auto) 1.2 10^3/uL (0.8-4.8) 07/29/23 13:12 [place] # (Auto) 0.6 10^3/uL (0.2-0.9) 07/29/23 13:12 Eos # (Auto) 0.1 10^3/uL (0.0-0.8) 07/29/23 13:12 Baso # (Auto) 0.0 10^3/uL (0.0-0.1) 07/29/23 13:12 Nucleated RBC % (auto) 0 % 07/29/23 13:12 Nucleated RBCs # 0.0 /100WBC 07/29/23 13:12 Sodium 132 mmol/L (136-145) L 07/29/23 13:12 Potassium 4.3 mmol/L (3.5-5.1) 07/29/23 13:12 Chloride 96 mmol/L (98-107) L 07/29/23 13:12 Carbon Dioxide 25 mmol/L (22-29) 07/29/23 13:12 Anion Gap 15.3 (5-19) 07/29/23 13:12 BUN 27 mg/dL (8-23) H 07/29/23 13:12 Creatinine 1.4 mg/dL (0.5-0.9) H 07/29/23 13:12 GFR Calculation Not Reportable 07/29/23 13:12 Glucose 105 mg/dL (65-115) 07/29/23 13:12 Calculated Osmolality 279 mOsm/kg (285-295) L 07/29/23 13:12 Calcium 9.4 mg/dL (8.5-10.5) 07/29/23 13:12 Total Bilirubin 0.3 mg/dL (0.15-1.2) 07/29/23 13:12 AST 24 U/L (0-32) 07/29/23 13:12 ALT 17 U/L (0-33) 07/29/23 13:12 Alkaline Phosphatase 84 U/L (35-105) 07/29/23 13:12 Total Protein 7.4 g/dL (6.6-8.7) 07/29/23 13:12 Albumin 3.9 g/dL (3.5-5.2) 07/29/23 13:12 Globulin 3.5 g/dL (1.3-4.6) 07/29/23 13:12 Influenza Type A Ag negative (Negative) 07/29/23 11:37 Influenza Type B Ag negative (Negative) 07/29/23 11:37 SARS-CoV-2 Ag (Rapid) negative (Negative) 07/29/23 11:37 All radiology interpretation(s) finalized by discharge Discharge Plan Discharge Patient Disposition: Home Clinical Impression: Sinusitis Condition: Stable Prescriptions: New amoxicillin-pot clavulanate 875-125 mg tablet 1 tab PO BID Qty: 20 0RF No Action aspirin [Adult Aspirin Regimen] 81 mg tablet,delayed release (DR/EC) 81 mg PO DAILY magnesium 250 mg tablet 250 mg PO BID calcium carbonate [Calcium 600] 600 mg calcium (1,500 mg) tablet 600 mg PO DAILY vitamin B complex [B Complex-Vitamin B12] Tablet 1 tab PO DAILY Restasis MultiDose 0.05 % drops 1 drp ophthalmic (eye) Q12H ketoconazole 2 % cream 1 applic topical BID PRN (Reason: Rash) rosuvastatin 10 mg tablet 10 mg PO DAILY 90 Days Qty: 90 3RF vitamin E (dl, acetate) 400 unit capsule 400 unit PO DAILY mupirocin 2 % ointment 1 applic topical BID Qty: 22 1RF Rx Instructions: Apply to affected area(s) until healed tramadol 50 mg tablet 50 mg PO Q8H PRN (Reason: Pain) spironolactone 100 mg tablet 50 mg PO BID nitroglycerin 0.4 mg tablet, sublingual 0.4 mg sublingual Q5M PRN (Reason: Chest Pain) Rx Instructions: do not exceed 3 doses per episode valsartan 160 mg tablet 160 mg PO DAILY Qty: 90 3RF doxazosin 1 mg tablet 1 mg PO DAILY Qty: 90 3RF cholecalciferol (vitamin D3) [Vitamin D3] 125 mcg (5,000 unit) Tablet 125 mcg PO DAILY biotin 5,000 mcg Tablet,Disintegrating 5,000 mcg PO DAILY multivitamin Tablet 1 tab PO DAILY metoprolol tartrate 50 mg tablet 50 mg PO BID Qty: 20 0RF ondansetron 4 mg tablet,disintegrating 4 mg PO Q8H PRN (Reason: nausea and vomiting) Qty: 15 0RF famotidine 20 mg Tablet 20 mg PO BID vitamin M79-aknhm acid 0.5-1 mg Tablet 1 tab PO DAILY Probiotic Acidophilus 250 million cell Capsule 10,000 mmu cells PO DAILY furosemide 20 mg tablet 20 mg PO BID Discharge Orders: Discharge ED (Routine); Ordered 07/29/23 Ordered By: Hiram Riddle Referrals: Sheeba Higgins FNP [Primary Care Provider] - Discharge Diet: Usual diet Discharge Activity: Resume usual activity Patient Instructions: Opioid Safety, Pain Management Activity Restrictions/Additional Instructions: Thank you for choosing [facility] for your healthcare needs today. Please realize this is an emergency room and that we are providing you with a medical screening exam and this may not be complete and all inclusive of all the testing and or work up that you may need to determine your ailment or severity of your illness. It is very important that you follow up as instructed or that you return to the Emergency Department should you have concerns or if your condition changes or worsens in any way. You were seen today with complaints of fever sinus congestion ear pain and cough. Chest x-ray did not show pneumonia laboratory tests are otherwise unremarkable. Recommend you start on Augmentin twice a day for 10 days to cover for sinusitis. If symptoms persist recheck with your primary care doctor. Coding Level of Care Code ED Sales Agent [employer] Stamps for Liang De La Rosa
[2023-07-29 11:49] VITALS: PULSE 81; RESP 16; O2SAT 92
[2023-07-29 12:31] LABS: Influenza A by IFA negative (Negative); Influenza B by IFA negative (Negative)
[2023-07-29 12:32] LABS: SARS Covid-2 Antigen negative (Negative)
[2023-07-29 13:35] LABS: Basophils % 0.6 %; Eosinophils # 0.1 10^3/uL (0.0-0.8); Eosinophils % 1.8 %; Lymphocytes # 1.2 10^3/uL (0.8-4.8); Lymphocytes % 16.9 %; Mean Corpuscular HGB Conc 32.6 g/dL (30-55); Mean Corpuscular Hemoglobin 30.2 pg (27-33); Mean Corpuscular Volume 92.7 fl (85-98); Mean Platelet Volume 9.7 fL (7.4-10.4); Monocytes # 0.6 10^3/uL (0.2-0.9); Monocytes % 8.5 %; Neutrophils % 71.4 %; Nucleated Red Blood Cells % 0 %; Platelet Count 212 10^3/cmm (157-399); Red Blood Count 4.53 10^6/uL (3.85-5.65); Red Cell Distribution Width 12.3 % (12.1-15.1); White Blood Count 7.15 10^3/uL (3.29-11.43)
[2023-07-29 13:57] LABS: Alanine Aminotransferase 17 U/L (0-33); Albumin Level 3.9 g/dL (3.5-5.2); Alkaline Phosphatase 84 U/L (35-105); Anion Gap 15.3 (5-19); Aspartate Amino Transferase 24 U/L (0-32); Blood Urea Nitrogen 27 mg/dL (8-23); Calcium 9.4 mg/dL (8.5-10.5); Carbon Dioxide 25 mmol/L (22-29); Chloride 96 mmol/L (98-107); Creatinine Clr Calc Pharmacy 24.1898; Globulin 3.5 g/dL (1.3-4.6); Glucose 105 mg/dL (65-115); Osmolality Calculated 279 mOsm/kg (285-295); Potassium 4.3 mmol/L (3.5-5.1); Sodium 132 mmol/L (136-145); Total Bilirubin 0.3 mg/dL (0.15-1.2); Total Protein 7.4 g/dL (6.6-8.7)
[2023-07-29 14:42] VITALS: TEMP 37.1
== END 2023-07-29 14:42 | disposition home or self-care (01) ==
PROVIDERS: Emergency Medicine; Emergency Provider Family Medicine; PCP Nurse Practitioner Family
DX: J32.9 Chronic sinusitis, unspecified (principal); Z79.82 Long term (current) use of aspirin; Z11.52 Encounter for screening for COVID-19; E11.22 Type 2 diabetes mellitus with diabetic chronic kidney disease; I13.0 Hypertensive heart and chronic kidney disease with heart failure and stage 1 through stage 4 chronic kidney disease, or unspecified chronic kidney disease; N18.9 Chronic kidney disease, unspecified; I50.9 Heart failure, unspecified; Z86.73 Personal history of transient ischemic attack (TIA), and cerebral infarction without residual deficits
CPT/HCPCS: 36415; 71045; 80053; 85025; 87426; 87804; 99284

== ENCOUNTER → 2023-08-13 13:05 | Outpatient (BNVA) | payer MEDICARE, OTHER, SELFPAY | PROVIDERS: PCP Nurse Practitioner Family; Visit Provider Dermatology | DX: L90.0 Lichen sclerosus et atrophicus (principal); L24.9 Irritant contact dermatitis, unspecified cause | CPT/HCPCS: 99214 ==

== ENCOUNTER → 2023-12-15 14:05 | Outpatient (BNVA) | payer MEDICARE, OTHER, SELFPAY | PROVIDERS: PCP Nurse Practitioner Family; Visit Provider Dermatology | DX: L90.0 Lichen sclerosus et atrophicus (principal); L24.9 Irritant contact dermatitis, unspecified cause; I83.91 Asymptomatic varicose veins of right lower extremity; L82.1 Other seborrheic keratosis | CPT/HCPCS: 99214 ==

== ENCOUNTER → 2023-12-23 16:28 | Outpatient (BNVA) | payer MEDICARE, OTHER, SELFPAY | PROVIDERS: PCP Nurse Practitioner Family; Visit Provider Internal Medicine Cardiovascular Disease | DX: R07.9 Chest pain, unspecified (principal); I11.0 Hypertensive heart disease with heart failure; I50.32 Chronic diastolic (congestive) heart failure; E11.9 Type 2 diabetes mellitus without complications; E78.00 Pure hypercholesterolemia, unspecified; I49.3 Ventricular premature depolarization | CPT/HCPCS: 93005; 99214 ==

== ENCOUNTER → 2024-07-06 14:51 | Outpatient (BNVA) | payer MEDICARE, OTHER, SELFPAY | PROVIDERS: PCP Nurse Practitioner Family; Visit Provider Nurse Practitioner Family | DX: L90.0 Lichen sclerosus et atrophicus (principal); L24.9 Irritant contact dermatitis, unspecified cause; I83.91 Asymptomatic varicose veins of right lower extremity; L82.1 Other seborrheic keratosis; L57.0 Actinic keratosis | CPT/HCPCS: 17000; 99214 ==

== ENCOUNTER → 2024-09-01 10:43 | Outpatient (BNVA) | payer MEDICARE, OTHER, SELFPAY | PROVIDERS: PCP Nurse Practitioner Family; Visit Provider Nurse Practitioner Family | DX: I49.3 Ventricular premature depolarization (principal); E78.00 Pure hypercholesterolemia, unspecified; I11.0 Hypertensive heart disease with heart failure; I50.32 Chronic diastolic (congestive) heart failure; E11.9 Type 2 diabetes mellitus without complications | CPT/HCPCS: 99213 ==

== ENCOUNTER → 2025-01-10 13:38 | Outpatient (BNVA) | payer MEDICARE, OTHER, SELFPAY | PROVIDERS: PCP Nurse Practitioner Family; Visit Provider Nurse Practitioner Family | DX: L90.0 Lichen sclerosus et atrophicus (principal); I83.91 Asymptomatic varicose veins of right lower extremity; L82.1 Other seborrheic keratosis; L98.8 Other specified disorders of the skin and subcutaneous tissue; L57.8 Other skin changes due to chronic exposure to nonionizing radiation; L81.4 Other melanin hyperpigmentation; L24.9 Irritant contact dermatitis, unspecified cause | CPT/HCPCS: 99214 ==

== ENCOUNTER → 2025-02-21 14:17 | Outpatient (BNVA) | payer MEDICARE, OTHER, SELFPAY | PROVIDERS: PCP Nurse Practitioner Family; Visit Provider Nurse Practitioner Family | DX: L24.9 Irritant contact dermatitis, unspecified cause (principal); L90.0 Lichen sclerosus et atrophicus | CPT/HCPCS: 99213 ==